=== PATIENT | female | born 1985 | race Caucasian/White ===

== ENCOUNTER 2019-02-04 12:13 | Day surgery (SDC) | payer OTHER, SELFPAY ==
--- NOTE | 2019-02-04 | PATH_ITS ---
[facility] Accession Number: [id number] . 01 Material submitted: . BODY OF ANTRUM . 01 Clinical history: . FOR H. PYLORI . 02 Diagnosis: Stomach, Biopsies: Gastric antral and body mucosa with chronic gastritis. Negative for Helicobacter organisms by immunohistochemistry. Negative for intestinal metaplasia, dysplasia or malignancy. V/02/06/2019 . 02 Electronically signed: . Kwadwo Bull MD, PhD, Pathologist NPI- [id number] . 01 Gross description: . Received in one formalin-filled container, labeled with the patient's name and labeled body of antrum, are four 0.1-0.3 cm portions of tissue, entirely submitted in one cassette. ([id number]) /FRR . 02 Microscopic: . An immunohistochemical stain is performed to evaluate for Helicobacter organisms and is negative. The control stain showed appropriate reactivity. . * This test was developed and its performance characteristics determined by [facility]. It has not been cleared or approved by the U.S. Food and Drug Administration. The FDA has determined that such clearance or approval is not necessary. This test is used for clinical purposes. It should not be regarded as investigational or for research. . 02 Pathologist provided ICD-10: K29.70 . 02 CPT . 771255, [id number] Performed at: 01 [facility] [address] [facility], [place], [place] [id number] MD Iglesia Owens MD Phone: [phone] Performed at: 02 [facility] [place] [address] [place], [place] [id number] MD Pily Gunderson MD Phone: [phone]
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
[2019-02-04 13:23] VITALS: BP 111/78; PULSE 77; RESP 16; TEMP 36.6; O2SAT 98; BMI 23.6
[2019-02-04] MEDS: SODIUM CHLORIDE 0.9% 1,000 ML 70 ML IV (13:29)
--- NOTE | 2019-02-04 14:09 | PM.OP.ENDO ---
Operative Date/Time/Diagnoses Date of procedure: 02/04/19 Procedure Notes Procedure in detail: Surgeon: Glen Lombardi MD Procedure: Esophagogastroduodenoscopy with gastric biopsies Preoperative diagnosis: Epigastric pain/dyspepsia Postoperative diagnosis: Normal EGD status post gastric biopsies Medications: Monitored anesthesia care due to history of PTSD Preanesthesia Assessment An H and P was performed/updated and the Px?s ASA class is 1. The procedure was discussed in detail with the patient. The potential risks and complications including infection, bleeding, missed lesions, perforation, need for surgery in case of perforation, prolonged hospital stay, and were explained. A brief question and answer period was allotted and once all questions were answered, informed consent was obtained. The patient was brought back to the procedure room and placed on standard monitoring. The patient?s vital signs were monitored continuously throughout the entire procedure. Prior to starting, a timeout was performed to confirm the patient?s identity, allergies, medications, and procedure. Procedure in detail The patient was placed in left lateral decubitus position and a bite block was inserted. The tip of the upper endoscope was placed into the mouth and advanced without difficulty under direct visualization into the esophagus. Esophagus: The entire esophagus appeared normal Stomach: The entire stomach appeared normal. Biopsies were taken from the body and antrum to rule out H pylori, there was note of minimal bleeding. Duodenum: The duodenal mucosa appeared normal up to the 2nd portion The patient tolerated the procedure well and will be brought back to the recovery area to be discharged once criteria are met. Complications There were no complications and estimated blood loss was minimal. Recommendations: Resume previous diet Continue outPx medications Follow up pathology results Office follow up with Dr. Dennison in 1-2 months if with persistent symptoms An emergency contact number was given to the patient for any complications related to the procedure
--- NOTE | 2019-02-04 14:12 | P.OP.ENDO_ITS ---
Operative Date/Time/Diagnoses Date of procedure: 02/04/19 Procedure Notes Procedure in detail: Surgeon: Glen Lombardi MD Procedure: Esophagogastroduodenoscopy with gastric biopsies Preoperative diagnosis: Epigastric pain/dyspepsia Postoperative diagnosis: Normal EGD status post gastric biopsies Medications: Monitored anesthesia care due to history of PTSD Preanesthesia Assessment An H and P was performed/updated and the Px?s ASA class is 1. The procedure was discussed in detail with the patient. The potential risks and complications including infection, bleeding, missed lesions, perforation, need for surgery in case of perforation, prolonged hospital stay, and were explained. A brief question and answer period was allotted and once all questions were answered, informed consent was obtained. The patient was brought back to the procedure room and placed on standard monitoring. The patient?s vital signs were monitored continuously throughout the entire procedure. Prior to starting, a timeout was performed to confirm the patient?s identity, allergies, medications, and procedure. Procedure in detail The patient was placed in left lateral decubitus position and a bite block was inserted. The tip of the upper endoscope was placed into the mouth and ad vanced without difficulty under direct visualization into the esophagus. Esophagus: The entire esophagus appeared normal Stomach: The entire stomach appeared normal. Biopsies were taken from the body and antrum to rule out H pylori, there was note of minimal bleeding. Duodenum: The duodenal mucosa appeared normal up to the 2nd portion The patient tolerated the procedure well and will be brought back to the recovery area to be discharged once criteria are met. Complications There were no complications and estimated blood loss was minimal. Recommendations: Resume previous diet Continue outPx medications Follow up pathology results Office follow up with Dr. Dennison in 1-2 months if with persistent symptoms An emergency contact number was given to the patient for any complications re lated to the procedure
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
[2019-02-04 14:23] VITALS: BP 103/71; PULSE 75; RESP 13; TEMP 36.5; O2SAT 99
[2019-02-04 14:27] VITALS: BP 108/76; PULSE 79; RESP 15; O2SAT 99
[2019-02-04 14:32] VITALS: BP 121/83; PULSE 84; RESP 15; O2SAT 94
[2019-02-04 14:54] VITALS: BP 110/70; PULSE 78; RESP 16; O2SAT 97
== END 2019-02-04 14:55 | disposition home or self-care (01) ==
PROVIDERS: Visit Provider Internal Medicine Gastroenterology
PROC: 0DJ08ZZ Inspection of Upper Intestinal Tract, Via Natural or Artificial Opening Endoscopic (ICD-10-PCS; CPT 43235; principal; 2019-02-04 14:00)
DX: K29.70 Gastritis, unspecified, without bleeding (principal); F43.10 Post-traumatic stress disorder, unspecified
CPT/HCPCS: 43239; 88305; 88342; J2704

== ENCOUNTER 2019-03-31 04:32 | Emergency (ER) | payer OTHER, SELFPAY ==
[2019-03-31 04:37] VITALS: BP 120/84; PULSE 84; RESP 16; TEMP 36.7; O2SAT 100; BMI 22.8
[2019-03-31 05:00] LABS: RBC Urine None Seen (0-5/HPF)
[2019-03-31 05:49] LABS: Bacteria Urine Few (2-10); Culture Indicated Urine Specimen Cultured; Squamous Epithelial Cell Urine 1-5 /HPF (0-5/HPF); WBC Urine 30-100/HPF (0-5/HPF)
--- NOTE | 2019-03-31 06:12 | ED_ITS ---
HPI - Female Genitourinary General Chief complaint: Urogenital-Female Stated complaint: painful urination odor thinks UTI Time Seen by Provider: 03/31/19 04:48 Source: patient Mode of arrival: ambulatory Limitations: no limitations History of Present Illness HPI Narrative: The patient developed dysuria with suprapubic discomfort 2 days ago. The pain has increased through the night to the point she felt she needed to come in for help. She is certain she has UTI. There is no associated nausea, vomiting or diarrhea. She has no fever chills. She denies back pain. She has a prior history of UTI, but has never had chronic UTIs. Her LMP was 3 weeks ago was normal. She doubts . Related Data Home Medications Medication Instructions Recorded Confirmed melatonin 10 mg PO BEDTIME PRN 02/04/19 02/04/19 Previous Rx's Medication Instructions Recorded phenazopyridine [Pyridium] 200 mg PO Q8H PRN #9 tab 03/31/19 sulfamethoxazole-trimethoprim 1 tab PO Q12H #14 tab 03/31/19 [Bactrim DS] Allergies Allergy/AdvReac Type Severity Reaction Status Date / Time acetaminophen [From Vicodin] AdvReac Severe stops Verified 02/04/19 13:21 urination hydrocodone [From Vicodin] AdvReac Severe stops Verified 02/04/19 13:21 urination Review of Systems Constitutional Reports as per HPI, Denies fatigue, Denies fever(s) and Denies headache(s) ENT Ears, Nose, Mouth, and Throat: Denies headache(s) Cardiovascular Denies chest pain, Denies lightheadedness, Denies palpitations, Denies dyspnea and Denies orthopnea Respiratory Denies cough, Denies dyspnea and Denies wheezing Gastrointestinal Gastrointestinal: Reports as per HPI, Reports abdominal pain, Denies change in bowel habits, Denies diarrhea, Denies nausea and Denies vomiting Genitourinary Reports dysuria, Denies urinary incontinence, Denies urinary hesitancy and Denies urinary urgency Musculoskeletal Denies back pain Integumentary/Breasts Denies erythema and Denies rash Neurologic Denies headache(s) Endocrine Denies fatigue and Denies palpitations Allergic/Immunologic Denies wheezing [facility] Medical History (Updated 03/31/19 @ 06:12 by Carlin Hutchison MD) PTSD (post-traumatic stress disorder) (Acute) Recurrent abdominal pain (Acute) Surgical History No pertinent past surgical history (Acute) Social History household members: family Smoking Status: Current every day smoker Social History household members: family Smoking Status: Current every day smoker Exam Initial Vital Signs Initial Vital Signs: Vital Signs Temperature 98.0 F 03/31/19 04:37 Pulse Rate 84 03/31/19 04:37 Respiratory Rate 16 03/31/19 04:37 Blood Pressure 120/84 03/31/19 04:37 Pulse Oximetry 100 03/31/19 04:37 Resp Effort & Inspection: normal respiratory effort and able to speak in complete sentences Auscultation: clear to auscultation bilaterally, no rales, no rhonchi and no wheezes Cardio Rate: regular rate Rhythm: regular rhythm Heart Sounds: no click, no gallops, no murmurs and no rubs Pulses: normal peripheral pulses GI Inspection: non-distended Palpation: soft, no hepatosplenomegaly, No guarding, No pulsatile mass and tender (Mild suprapubic discomfort without guarding or rebound.) Auscultation: normal bowel sounds Back/Spine/Pelvis Back: No CVA tenderness Course Course Narrative: The patient was found to have a UTI. She was started on Septra DS this morning. She was also given Pyridium to assist with spasms. Orders Ordered: Discontinued Medications Phenazopyridine HCl (Pyridium) 200 mg PO NOW ONE Stop: 03/31/19 06:01 Last Admin: 03/31/19 06:31 Dose: 200 mg Trimethoprim/Sulfamethoxazole (Bactrim Ds) 1 tab PO NOW ONE Stop: 03/31/19 06:01 Last Admin: 03/31/19 06:31 Dose: 1 tab Vital Signs - 8 hr 03/31/19 04:37 03/31/19 06:27 Temperature 98.0 F 98.5 F Pulse Rate 84 76 Respiratory Rate 16 16 Blood Pressure 120/84 Blood Pressure [Left Arm] 108/75 Pulse Oximetry 100 100 MDM - Female Genitourinary Lab Data Lab Results 03/31/19 Range/Units 04:40 Urine RBC None seen (0-5/HPF) Urine WBC 30-100/hpf H (0-5/HPF) Ur Squamous Epith Cells 1-5 /hpf (0-5/HPF) Urine Bacteria Few (2-10) H (None) Ur Culture Indicated? Specimen cultured Urine Dip Bedside Urine Glucose Negative Bedside Urine Bilirubin - Negative Bedside Urine Ketone - Negative Urine Specific [place] 1.010 Bedside Urine Occult Blood +++ Bedside Urine pH 6.0 Bedside Urine Protein - Negative Bedside Urine Urobilinogen - Negative Bedside Urine Nitrite - Negative Bedside Urine Leukocytes +++ 500 Esterase Discharge Plan Departure Patient Disposition: Home Clinical Impression: Urinary tract infection Qualifiers: Urinary tract infection type: acute cystitis Hematuria presence: without hematuria Qualified Code(s): N30.00 - Acute cystitis without hematuria Discharge Date/Time: 03/31/19 06:36 Interventions: ED Discharge Assessment Last Done: 03/31/19 06:36 Instructions: DI for Urinary Tract Infection (UTI) Activity Restrictions/Additional Instructions: Drink plenty of water, stay well hydrated. Septra DS 2 times daily for 1 week. Pre him every 8 hours for the next 3 days as needed for bladder spasm. Stop this medication when symptoms improve. Return the ER for increasing pain, fever, nausea or vomiting. Prescriptions: New phenazopyridine [Pyridium] 200 mg tablet 200 mg PO Q8H PRN (Reason: pain) Qty: 9 RF: 0 sulfamethoxazole-trimethoprim [Bactrim DS] 800-160 mg tablet 1 tab PO Q12H Qty: 14 RF: 0 No Action melatonin 10 mg Tablet 10 mg PO BEDTIME PRN (Reason: Insomnia) RF: 0
[2019-03-31 06:27] VITALS: BP 108/75; PULSE 76; RESP 16; TEMP 36.9; O2SAT 100
[2019-03-31] MEDS: TRIMETH/SULFA 160/800 (DS) TABLET 1 TAB PO (06:31)
[2019-03-31] MEDS: PHENAZOPYRIDINE 100 MG TABLET 200 MG PO (06:31)
== END 2019-03-31 06:36 | disposition home or self-care (01) ==
PROVIDERS: Emergency Provider Emergency Medicine
DX: N30.00 Acute cystitis without hematuria (principal)
CPT/HCPCS: 81003; 81015; 87077; 87086; 87186; 99282; 99283

== ENCOUNTER → 2019-04-10 12:02 | Outpatient (CLI) | payer OTHER, SELFPAY ==
--- NOTE | 2019-04-10 | DI.US.S_ITS ---
PROCEDURE: US ABDOMEN COMPLETE INDICATIONS: RIGHT UPPER QUADRANT PAIN TECHNIQUE: Real-time scanning was performed of the abdominal and retroperitoneal organs, with image documentation. COMPARISON: None. FINDINGS: Liver: Liver is normal in size and homogeneous in echotexture. A thin-walled simple cyst is present in the dorsal lateral left lobe of the liver measuring 2.1 x 2.0 x 2.7 cm. Gallbladder: Gallbladder is normal without stones, sludge, wall thickening, or pericholecystic fluid. Biliary ducts: Intrahepatic bile ducts are non-dilated. Extrahepatic bile duct caliber measures 5.5 mm. Normal is 6-7 mm or less in diameter, or 10 mm or less post-cholecystectomy. Pancreas: Visualized portions of the pancreas are sonographically normal. Spleen: Spleen is normal in size and homogeneous in echotexture. Kidneys: Kidneys are normal in size and echotexture. Right kidney measures 10.4 cm long; left kidney measures 10.6 cm long. No hydronephrosis or nephrolithiasis. No solid masses. Aorta: Visualized aorta is normal in caliber at less than 3 cm. Iliacs: Proximal common iliac arteries are normal in caliber at less than 2.5 cm. IVC: Intrahepatic inferior vena cava is patent. Miscellaneous: No free abdominal fluid. IMPRESSION: 1. Etiology of right upper quadrant pain is not evident. 2. 2.7 cm simple liver cyst. Dictated by: Alyssa Santoyo M.D. on 04/10/2019 at 14:05 Approved by: Alyssa Santoyo M.D. on 04/10/2019 at 14:07
== END ==
PROVIDERS: Visit Provider Internal Medicine Gastroenterology
DX: R10.11 Right upper quadrant pain (principal); K76.89 Other specified diseases of liver
CPT/HCPCS: 76700

== ENCOUNTER 2019-11-23 17:07 | Emergency (ER) | payer OTHER, SELFPAY ==
[2019-11-23 17:10] VITALS: BP 123/81; PULSE 93; RESP 22; TEMP 36.6; O2SAT 98; BMI 24.3
[2019-11-23] MEDS: ONDANSETRON 4 MG ODT SL (17:26)
[2019-11-23] MEDS: MAG HYDROX/ALUMINUM/SIMETH SUS 20 ML, LIDOCAINE VISCOUS 2% 15 ML PO (17:28)
--- NOTE | 2019-11-23 18:38 | ED_ITS ---
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 It comes and goes with an apparent mind of its own and she denies any provocation, palliation or radiation. She denies vomiting but has been a bit nauseated. She has had no fever chills and denies any change in her bowel habits. She denies dysuria, frequency or urgency. She has no vaginal bleeding or discharge. She has had extensive workup including ultrasounds, endoscopy and swallow studies and has a scheduled gastric emptying study MD complaint: abdominal pain Onset (ago): month(s) Pain Consistency: intermittent Location: epigastric Severity: moderate Quality: cramping Radiation: none Migration to: no migration Relieving factors: nothing Exacerbating factors: nothing Associated symptoms: nausea Related Data Home Medications Medication Instructions Recorded Confirmed melatonin 10 mg PO BEDTIME PRN 02/04/19 02/04/19 Previous Rx's Medication Instructions Recorded hydrocodone-acetaminophen 1 tab PO Q4-6H PRN #10 tab 11/23/19 hyoscyamine sulfate 0.25 mg PO TID-QID PRN #14 tab 11/23/19 ondansetron 4 mg PO TID-QID PRN #10 tab 11/23/19 Allergies Allergy/AdvReac Type Severity Reaction Status Date / Time No Known Drug Allergies Allergy Verified 11/23/19 17:10 Review of Systems Constitutional Constitutional: Denies chills, Denies fatigue, Denies fever(s), Denies frequent falls, Denies lethargy and Denies weakness Eyes Eyes: Denies change in vision, Denies eye discharge, Denies irritation and Denies loss of vision ENT Ears, Nose, Mouth, and Throat: Denies change in voice, Denies dizziness, Denies neck pain, Denies sore throat and Denies throat swelling Cardiovascular Cardiovascular: Denies chest pain, Denies irregular heart rhythm, Denies lightheadedness, Denies palpitations, Denies dyspnea, Denies dyspnea on exertion and Denies orthopnea Respiratory Respiratory: Denies cough, Denies dyspnea, Denies dyspnea on exertion and Denies wheezing Gastrointestinal Gastrointestinal: Reports abdominal pain, Denies change in bowel habits, Denies diarrhea, Denies nausea and Denies vomiting Genitourinary Genitourinary: Denies hematuria, Denies flank pain, Denies urinary incontinence and Denies urinary urgency Musculoskeletal Musculoskeletal: Denies back pain, Denies muscle weakness, Denies neck pain, Denies numbness and Denies tingling Integumentary/Breasts Skin/Breast: Denies pruritus, Denies erythema, Denies rash and Denies wounds Neurologic Neurologic: Denies behavioral changes, Denies confusion, Denies dizziness, Denies frequent falls, Denies loss of vision, Denies numbness, Denies tingling and Denies weakness Psychiatric Psychiatric: Denies anxiety, Denies behavioral changes, Denies confusion, Denies depression, Denies homicidal ideation and Denies suicidal ideation Endocrine Endocrine: Denies fatigue, Denies flushing and Denies palpitations Hematologic/Lymphatic Hematologic/Lymphatic: Denies easy bruising Allergic/Immunologic Allergic/Immunologic: Denies urticaria, Denies throat swelling and Denies wheezing Patient History Medical History PTSD (post-traumatic stress disorder) (Acute) Recurrent abdominal pain (Acute) Surgical History No pertinent past surgical history (Acute) Social History household members: family Smoking Status: Never smoker Smoking Status: Never smoker alcohol intake frequency: 0-2 drinks per day Substance Use Type: marijuana Exam Narrative Exam Narrative: GENERAL: [34] year old patient appears stated age. Well- nourished, well-developed patient, in mild distress. Obviously uncomfortable and massaging her epigastrium HEAD: Atraumatic. Normocephalic. EYES: Pupils equal round and reactive. Extraocular motions intact. No scleral icterus. No injection or drainage. ENT: Nose without bleeding, purulent drainage. Throat without erythema, tonsillar hypertrophy or exudate. Airway patent. NECK: Trachea midline. Non tender CARDIOVASCULAR: Regular rate and rhythm without murmurs, gallops, or rubs. RESPIRATORY: Clear to auscultation. Breath sounds equal bilaterally. No wheezes, rales, or rhonchi. GASTROINTESTINAL: Abdomen soft, mild epigastric tenderness, nondistended. EXTREMITIES: No edema or joint tenderness. BACK: Nontender without deformity or crepitance. No flank tenderness. NEURO: AOx3. SKIN: No rash or erythema of visible areas Initial Vital Signs Initial Vital Signs: Vital Signs Temperature 97.8 F 11/23/19 17:10 Pulse Rate 93 H 11/23/19 17:10 Respiratory Rate 22 11/23/19 17:10 Blood Pressure 123/81 11/23/19 17:10 Pulse Oximetry 98 11/23/19 17:10 Course Orders Ordered: ED Orders 11/23/19 18:50 Complete Blood Count AUTO DIFF Stat Comprehensive Metabolic Panel Stat Lipase Stat 11/23/19 19:23 CT abdomen pelvis w con Stat 11/23/19 19:26 Urine Culture Stat Urine Microscopic Stat Discontinued Medications Hydrocodone Bitart/Acetaminophen (Vicodin 5/325 Prepack) 1 bottle MISC SEEINSTR ONE Stop: 11/23/19 20:54 Last Admin: 11/23/19 21:07 Dose: 1 bottle Documented by: CHARLEEN Al Hydrox/Mg Hydrox/Simethicone 20 ml/ Lidocaine HCl 15 ml 0 ml PO NOW ONE Stop: 11/23/19 17:20 Last Admin: 11/23/19 17:28 Dose: 35 ml Documented by: ALFREDO Hydromorphone HCl (Dilaudid) 0.5 mg IV NOW ONE Stop: 11/23/19 19:24 Last Admin: 11/23/19 19:52 Dose: 0.5 mg Documented by: REBEAK Sodium Chloride (Normal Saline 0.9%) 1,000 mls @ 1,000 mls/hr IV BOLUS ONE Stop: 11/23/19 20:22 Last Infusion: 11/23/19 21:06 Dose: 0 mls/hr Documented by: Admin: 11/23/19 19:54 Dose: 1,000 mls/hr Documented by: RBEEKA Ondansetron HCl (Zofran Odt) 4 mg SL NOW ONE Stop: 11/23/19 17:20 Last Admin: 11/23/19 17:26 Dose: 4 mg Documented by: ALFREDO Ondansetron HCl (Zofran Odt Prepack) 1 bottle MISC SEEINSTR ONE Stop: 11/23/19 20:54 Last Admin: 11/23/19 21:07 Dose: 1 bottle Documented by: CHARLEEN Pantoprazole Sodium (Protonix) 40 mg IV NOW ONE Stop: 11/23/19 19:24 Last Admin: 11/23/19 19:51 Dose: 40 mg Documented by: RODOLFOT Vital Signs Vital signs: Vital Signs - 8 hr 11/23/19 21:14 Temperature 98.0 F Pulse Rate 83 Respiratory Rate 18 Blood Pressure 132/86 Pulse Oximetry 99 MDM - Abdominal Pain Lab Data Result diagrams: 11/23/19 18:50 11/23/19 18:50 Labs: Lab Results 11/23/19 11/23/19 11/23/19 Range/Units 18:50 18:50 19:26 WBC 7.0 (4.5-11.0) X10^3/uL RBC 4.63 (4.0-5.2) X10^6/uL Hgb 14.2 (12.0-16.0) g/dL Hct 41.5 (36-46) % MCV 89.6 (80-100) fL MCH 30.7 (26-34) PG MCHC 34.3 (30-36) % RDW 13.4 (11.6-14.8) % Plt Count 244 (150-400) X10^3/uL Neut % (Auto) 58.6 (50-75) % Lymph % (Auto) 30.9 (25-40) % [place] % (Auto) 8.8 (3-14) % Eos % (Auto) 1.0 L (2-4) % Baso % (Auto) 0.7 (0-2) % Neut # (Auto) 4100 (4413-2928) /uL Lymph # (Auto) 2200 (3711-8688) /uL [place] # (Auto) 600 (0-900) /uL Eos # (Auto) 100 (0-450) /uL Baso # (Auto) 100 (0-100) /uL Sodium 138 (137-145) mmol/L Potassium 4.1 (3.4-5.1) mmol/L Chloride 101 (98-107) mmol/L Carbon Dioxide 27 (22-32) mmol/L BUN 17 (7-17) mg/dL Creatinine 0.80 (0.52-1.04) mg/dL Estimated GFR > 60.0 (>60) mL/min BUN/Creatinine Ratio 21.3 (6-22) Glucose 96 (70-100) mg/dL Calcium 10.1 (8.4-10.2) mg/dL Total Bilirubin 0.5 (0.2-1.3) mg/dL AST 37 H (14-36) IU/L ALT 18 (<35) IU/L Alkaline Phosphatase 76 (38-126) U/L Total Protein 8.4 H (6.3-8.2) g/dL Albumin 5.0 (3.5-5.0) g/dL Globulin 3.4 (1.7-4.1) g/dL Albumin/Globulin Ratio 1.5 (1.0-2.8) Lipase 129 (23-300) U/L Urine RBC None seen (0-5/HPF) Urine WBC 1-5/hpf (0-5/HPF) Ur Squamous Epith Cells 0-1 /hpf (0-5/HPF) Urine Bacteria Occasional (0-1) (None) Ur Culture Indicated? Specimen cultured Point of care testing: Point of Care Testing Test Results Negative Urine Dip Bedside Urine Glucose Negative Bedside Urine Bilirubin + 1 Bedside Urine Ketone +/- 5 Urine Specific [place] 1.015 Bedside Urine Occult Blood - Negative Bedside Urine pH 7.0 Bedside Urine Protein - Negative Bedside Urine Urobilinogen +/- 1mg Bedside Urine Nitrite - Negative Bedside Urine Leukocytes + [address] scan - abdomen/pelvis: Radiologist's Impression: [address] [address] [address] Scan Report Signed Patient: Patrice Jessica#: [id number] : 1985Acct:[id number] Age/Sex: 34 / FDate of Service: 11/23/19 Loc: ED Accession Number: [id number] Procedure: CT abdomen pelvis w con Ordering Provider: Jonathan Singh D.O. PROCEDURE: CT ABDOMEN PELVIS W CON INDICATIONS: severe abdominal pain TECHNIQUE: After the administration of intravenous contrast, 5 mm thick sections acquired from the diaphragm to the symphysis. 5 mm coronal and sagittal reformats were acquired. For radiation dose reduction, the following was used: automated exposure control, adjustment of mA and/or kV according to patient size. COMPARISON: [facility] , [place] ABDOMEN COMPLETE, 04/10/2019, 12:13. FINDINGS: Image quality: Excellent. ABDOMEN: Lung bases: Lung bases are clear. Heart size is normal. Solid organs: Liver is normal in size and enhancement. Gallbladder is unremarkable. Biliary system is non dilated. Pancreas enhances normally. Spleen is normal in size and enhancement. No adrenal nodules. Kidneys demonstrate normal size and enhancement, without hydronephrosis. Peritoneum and bowel: Bowel loops demonstrate normal wall thickness and caliber. No free fluid or air. A normal appendix is noted. Nodes and vessels: No retroperitoneal or mesenteric adenopathy by size criteria. Aorta and inferior vena cava are normal in size. Miscellaneous: No ventral hernias. PELVIS: Genitourinary: Bladder wall thickness is normal. Miscellaneous: No inguinal hernias or adenopathy. Bones: No suspicious bony lesions. No vertebral body compression fractures. IMPRESSION: Unremarkable CT of the abdomen and pelvis. No evidence of acute abdominal process. Normal appendix. Dictated by: Mane Webber M.D. on 11/23/2019 at 20:22 Approved by: Mane Webber M.D. on 11/23/2019 at 20:26 MDM Narrative Medical decision making narrative: Multiple etiologies for patient's symptoms considered including: [Gallbladder disease versus pancreatitis versus esophageal disease versus H pylori versus bowel obstruction versus other] Patient's symptoms improved or duration of stay with above-stated therapies. Findings and discharge diagnosis discussed with patient/family followed by verbalization of understanding Return precautions discussed with patient/family whom verbalize understanding. Patient denies any urinary complaints such as dysuria, frequency or urgency. No antibiotics written, will await return of cultures Discharge Plan Departure Patient Disposition: Home Clinical Impression: Abdominal pain Qualifiers: Abdominal location: generalized Qualified Code(s): R10.84 - Generalized abdominal pain Discharge Date/Time: 11/23/19 21:21 Activity Restrictions/Additional Instructions: *You have been diagnosed with [acute epigastric pain] *What to do: *Take medications as directed: Pres[facility] to [facility] [place] *Follow up with your primary care provider in 2-3 days, call for an appointment. Let them know you were seen in the Emergency Department and that we ask that you be seen in follow up *Return to ER if you should have any new, worsening or concerning symptoms Prescriptions: New hydrocodone-acetaminophen 5-325 mg tablet 1 tab PO Q4-6H PRN (Reason: pain) Qty: 10 RF: 0 ondansetron 4 mg tablet,disintegrating 4 mg PO TID-QID PRN (Reason: nausea and vomiting) Qty: 10 RF: 0 hyoscyamine sulfate 0.125 mg tablet 0.25 mg PO TID-QID PRN (Reason: dyspepsia) Qty: 14 RF: 0 No Action melatonin 10 mg Tablet 10 mg PO BEDTIME PRN (Reason: Insomnia) RF: 0
--- NOTE | 2019-11-23 19:23 | DI.CT.S_ITS ---
PROCEDURE: CT ABDOMEN PELVIS W CON INDICATIONS: severe abdominal pain TECHNIQUE: After the administration of intravenous contrast, 5 mm thick sections acquired from the diaphragm to the symphysis. 5 mm coronal and sagittal reformats were acquired. For radiation dose reduction, the following was used: automated exposure control, adjustment of mA and/or kV according to patient size. COMPARISON: [facility], , [place] ABDOMEN COMPLETE, 04/10/2019, 12:13. FINDINGS: Image quality: Excellent. ABDOMEN: Lung bases: Lung bases are clear. Heart size is normal. Solid organs: Liver is normal in size and enhancement. Gallbladder is unremarkable. Biliary system is non dilated. Pancreas enhances normally. Spleen is normal in size and enhancement. No adrenal nodules. Kidneys demonstrate normal size and enhancement, without hydronephrosis. Peritoneum and bowel: Bowel loops demonstrate normal wall thickness and caliber. No free fluid or air. A normal appendix is noted. Nodes and vessels: No retroperitoneal or mesenteric adenopathy by size criteria. Aorta and inferior vena cava are normal in size. Miscellaneous: No ventral hernias. PELVIS: Genitourinary: Bladder wall thickness is normal. Miscellaneous: No inguinal hernias or adenopathy. Bones: No suspicious bony lesions. No vertebral body compression fractures. IMPRESSION: Unremarkable CT of the abdomen and pelvis. No evidence of acute abdominal process. Normal appendix. Dictated by: Mane Webber M.D. on 11/23/2019 at 20:22 Approved by: Mane Webber M.D. on 11/23/2019 at 20:26
[2019-11-23 19:37] LABS: Add Manual Diff / Slide Review NO; Basophils Absolute Auto 100 /uL (0-100); Basophils Percent Auto 0.7 % (0-2); Eosinophils Absolute Auto 100 /uL (0-450); Hematocrit 41.5 % (36-46); Hemoglobin 14.2 g/dL (12.0-16.0); Lymphocytes Absolute Auto 2200 /uL (1100-4500); Lymphocytes Percent Auto 30.9 % (25-40); Mean Corpuscular HGB Conc 34.3 % (30-36); Mean Corpuscular Hemoglobin 30.7 PG (26-34); Mean Corpuscular Volume 89.6 fL (80-100); Monocytes Absolute Auto 600 /uL (0-900); Monocytes Percent Auto 8.8 % (3-14); Neutrophils Absolute Auto 4100 /uL (1500-7000); Neutrophils Percent Auto 58.6 % (50-75); Platelet Count 244 X10^3/uL (150-400); Red Blood Cell Count 4.63 X10^6/uL (4.0-5.2); Red Cell Distribution Width 13.4 % (11.6-14.8)
[2019-11-23 19:43] LABS: Alanine Aminotransferase 18 IU/L (<35); Albumin Globulin Ratio 1.5 (1.0-2.8); Alkaline Phosphatase 76 U/L (38-126); Aspartate Aminotransferase 37 IU/L (14-36); BUN Creatinine Ratio 21.3 (6-22); Bilirubin Total 0.5 mg/dL (0.2-1.3); Blood Urea Nitrogen 17 mg/dL (7-17); Calcium 10.1 mg/dL (8.4-10.2); Carbon Dioxide 27 mmol/L (22-32); Chloride 101 mmol/L (98-107); Estimated Glomerular Filt Rate > 60.0 mL/min (>60); Globulin 3.4 g/dL (1.7-4.1); Glucose 96 mg/dL (70-100); HEMOLYSIS 18 (0-50); Lipase 129 U/L (23-300); Potassium 4.1 mmol/L (3.4-5.1); Sodium 138 mmol/L (137-145); Total Protein 8.4 g/dL (6.3-8.2)
[2019-11-23] MEDS: PANTOPRAZOLE 40 MG VIAL IV (19:51)
[2019-11-23] MEDS: HYDROMORPHONE 0.5 MG INJ IV (19:52)
[2019-11-23] MEDS: SODIUM CHLORIDE 0.9% 1,000 ML 1000 ML IV (19:54)
[2019-11-23 20:15] LABS: RBC Urine None Seen (0-5/HPF)
[2019-11-23 20:26] LABS: Bacteria Urine Occasional (0-1); Culture Indicated Urine Specimen Cultured; Squamous Epithelial Cell Urine 0-1 /HPF (0-5/HPF); WBC Urine 1-5/HPF (0-5/HPF)
[2019-11-23] MEDS: ONDANSETRON 4 MG ODT PREPACK 1 BOTTLE MISC (21:07)
[2019-11-23] MEDS: HYDROCODONE/ACET 5/325 PREPACK 1 BOTTLE MISC (21:07)
[2019-11-23 21:14] VITALS: BP 132/86; PULSE 83; RESP 18; TEMP 36.7; O2SAT 99
== END 2019-11-23 21:21 | disposition home or self-care (01) ==
PROVIDERS: Emergency Provider Emergency Medicine
DX: R10.13 Epigastric pain (principal); R11.0 Nausea
CPT/HCPCS: 36415; 74177; 80053; 81003; 81015; 81025; 83690; 85025; 87086; 96361; 96374; 96375; 99284; C9113; J1170; Q9967

== ENCOUNTER 2019-11-27 08:37 | Emergency (ER) | payer OTHER, SELFPAY ==
--- NOTE | 2019-11-27 08:42 | ED_ITS ---
HPI - Abdominal Pain General Chief Complaint: Abdominal Pain Stated Complaint: STOMACH PAIN X7 DAYS Time Seen by Provider: 11/27/19 08:42 Source: patient and family Mode of arrival: Ambulatory Limitations: no limitations History of Present Illness HPI narrative: 34-year-old female never smoker with chronic abdominal pain returns to the emergency department with similar complaints to a few days ago. She has episodic generalized abdominal pain, though perhaps a bit more persistent in the epigastrium that comes and goes with no apparent provocation or palliation. There's minimal radiation. She has had 1 episode of vomiting and no change in bowel habits. She denies dysuria, frequency or urgency. She was seen and evaluated a few days ago and had similar complaints to that which has become chronic for her. Ultrasound, CT and labs were unremarkable. She was given a few prescriptions for pain control and encouraged to follow up. 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 She has essentially no new symptoms and is in search of pain relief. We did discuss emergency department treatment of chronic symptoms, especially pain and she understands our policy. MD complaint: abdominal pain Onset (ago): day(s) Pain Consistency: intermittent Location: diffuse and epigastric Severity: moderate Quality: cramping Radiation: none Relieving factors: nothing Exacerbating factors: nothing Associated symptoms: nausea and vomiting Related Data Home Medications Medication Instructions Recorded Confirmed melatonin 10 mg PO BEDTIME PRN 02/04/19 02/04/19 Previous Rx's Medication Instructions Recorded hydrocodone-acetaminophen 1 tab PO Q4-6H PRN #10 tab 11/23/19 hyoscyamine sulfate 0.25 mg PO TID-QID PRN #14 tab 11/23/19 ondansetron 4 mg PO TID-QID PRN #10 tab 11/23/19 dicyclomine 10 mg PO BID #20 cap 11/27/19 hydrocodone-acetaminophen 1 tab PO Q4-6H PRN #10 tab 11/27/19 Allergies Allergy/AdvReac Type Severity Reaction Status Date / Time No Known Drug Allergies Allergy Verified 11/23/19 17:10 Review of Systems Constitutional Constitutional: Denies chills, Denies fatigue, Denies fever(s), Denies frequent falls, Denies lethargy and Denies weakness Eyes Eyes: Denies change in vision, Denies eye discharge, Denies irritation and Denies loss of vision ENT Ears, Nose, Mouth, and Throat: Denies change in voice, Denies dizziness, Denies neck pain, Denies sore throat and Denies throat swelling Cardiovascular Cardiovascular: Denies chest pain, Denies irregular heart rhythm, Denies lightheadedness, Denies palpitations, Denies dyspnea, Denies dyspnea on exertion and Denies orthopnea Respiratory Respiratory: Denies cough, Denies dyspnea, Denies dyspnea on exertion and Denies wheezing Gastrointestinal Gastrointestinal: Reports abdominal pain, Denies change in bowel habits, Denies diarrhea, Reports nausea and Reports vomiting Genitourinary Genitourinary: Denies hematuria, Denies flank pain, Denies urinary incontinence and Denies urinary urgency Musculoskeletal Musculoskeletal: Denies back pain, Denies muscle weakness, Denies neck pain, Denies numbness and Denies tingling Integumentary/Breasts Skin/Breast: Denies pruritus, Denies erythema, Denies rash and Denies wounds Neurologic Neurologic: Denies behavioral changes, Denies confusion, Denies dizziness, Denies frequent falls, Denies loss of vision, Denies numbness, Denies tingling and Denies weakness Psychiatric Psychiatric: Denies anxiety, Denies behavioral changes, Denies confusion, Denies depression, Denies homicidal ideation and Denies suicidal ideation Endocrine Endocrine: Denies fatigue, Denies flushing and Denies palpitations Hematologic/Lymphatic Hematologic/Lymphatic: Denies easy bruising Allergic/Immunologic Allergic/Immunologic: Denies urticaria, Denies throat swelling and Denies wheezing Patient History Medical History PTSD (post-traumatic stress disorder) (Acute) Recurrent abdominal pain (Acute) Surgical History No pertinent past surgical history (Acute) Social History household members: family Smoking Status: Never smoker Smoking Status: Never smoker alcohol intake frequency: 0-2 drinks per day Substance Use Type: marijuana Exam Narrative Exam Narrative: GENERAL: [34] year old patient appears stated age. Well- nourished, well-developed patient, in mild distress. Rubbing her epigastrium, tearful and frustrated HEAD: Atraumatic. Normocephalic. EYES: Pupils equal round and reactive. Extraocular motions intact. No scleral icterus. No injection or drainage. ENT: Nose without bleeding, purulent drainage. Throat without erythema, tonsillar hypertrophy or exudate. Airway patent. NECK: Trachea midline. Non tender CARDIOVASCULAR: Regular rate and rhythm without murmurs, gallops, or rubs. RESPIRATORY: Clear to auscultation. Breath sounds equal bilaterally. No wheezes, rales, or rhonchi. GASTROINTESTINAL: Abdomen soft, mild reproducible tenderness, nondistended. EXTREMITIES: No edema or joint tenderness. BACK: Nontender without deformity or crepitance. No flank tenderness. NEURO: AOx3. SKIN: No rash or erythema of visible areas Initial Vital Signs Initial Vital Signs: Vital Signs Temperature 97.9 F 11/27/19 08:45 Pulse Rate 74 11/27/19 08:45 Respiratory Rate 20 11/27/19 08:45 Blood Pressure 137/75 11/27/19 08:45 Pulse Oximetry 100 11/27/19 08:45 Course Orders Ordered: ED Orders 11/27/19 09:09 Complete Blood Count AUTO DIFF Stat Comprehensive Metabolic Panel Stat Discontinued Medications Hydromorphone HCl (Dilaudid) 1 mg IM NOW ONE Stop: 11/27/19 08:57 Last Admin: 11/27/19 09:02 Dose: 1 mg Documented by: RAUL Vital Signs Vital signs: Vital Signs - 8 hr 11/27/19 08:45 11/27/19 09:46 Temperature 97.9 F Pulse Rate 74 66 Respiratory Rate 20 Blood Pressure 137/75 121/77 Pulse Oximetry 100 99 MDM - Abdominal Pain Lab Data Result diagrams: 11/27/19 09:09 11/27/19 09:09 Labs: Lab Results 11/27/19 11/27/19 Range/Units 09:09 09:09 WBC 3.9 L (4.5-11.0) X10^3/uL RBC 4.27 (4.0-5.2) X10^6/uL Hgb 13.1 (12.0-16.0) g/dL Hct 38.4 (36-46) % MCV 90.1 (80-100) fL MCH 30.6 (26-34) PG MCHC 34.0 (30-36) % RDW 13.4 (11.6-14.8) % Plt Count 201 (150-400) X10^3/uL Neut % (Auto) 55.0 (50-75) % Lymph % (Auto) 32.0 (25-40) % [place] % (Auto) 10.5 (3-14) % Eos % (Auto) 2.0 (2-4) % Baso % (Auto) 0.5 (0-2) % Neut # (Auto) 2200 (8595-4130) /uL Lymph # (Auto) 1300 (3616-7733) /uL [place] # (Auto) 400 (0-900) /uL Eos # (Auto) 100 (0-450) /uL Baso # (Auto) 0 (0-100) /uL Sodium 136 L (137-145) mmol/L Potassium 4.2 (3.4-5.1) mmol/L Chloride 103 (98-107) mmol/L Carbon Dioxide 27 (22-32) mmol/L BUN 13 (7-17) mg/dL Creatinine 0.90 (0.52-1.04) mg/dL Estimated GFR > 60.0 (>60) mL/min BUN/Creatinine Ratio 14.4 (6-22) Glucose 89 (70-100) mg/dL Calcium 9.5 (8.4-10.2) mg/dL Total Bilirubin 0.4 (0.2-1.3) mg/dL AST 23 (14-36) IU/L ALT 14 (<35) IU/L Alkaline Phosphatase 56 (38-126) U/L Total Protein 7.5 (6.3-8.2) g/dL Albumin 4.4 (3.5-5.0) g/dL Globulin 3.1 (1.7-4.1) g/dL Albumin/Globulin Ratio 1.4 (1.0-2.8) Discharge Plan Departure Patient Disposition: Home Clinical Impression: Abdominal pain Qualifiers: Abdominal location: generalized Qualified Code(s): R10.84 - Generalized abdominal pain Discharge Date/Time: 11/27/19 09:47 Instructions: DI for Abdominal Pain-Adult Activity Restrictions/Additional Instructions: Your prescription has been electronically sent to [facility] in [place]. STOP taking the Hyoscyamine which I prescribed to you a few days ago as it isn't working. I've written another medication which may help, but it cannot be taken with the Hyoscyamine. Please continue to contact your PCP about a referral to GI. I've included contact info for the GI doctors at [facility] in [place] in case you wish to pursue a different provider. You have been prescribed narcotic medications. While on these medications you cannot drive or operate heavy machinery. Additionally you cannot sign legal documents or perform any duties such as this. Many people get constipated on narcotic medications so it would be advisable to discuss stool softeners with the pharmacist when you picker your prescription. Please understand that we cannot provide further refills of narcotics or controlled substances through the ED and your pain management will need to be through your Primary Care Provider Prescriptions: New hydrocodone-acetaminophen 5-325 mg tablet 1 tab PO Q4-6H PRN (Reason: pain) Qty: 10 RF: 0 dicyclomine 10 mg capsule 10 mg PO BID Qty: 20 RF: 0 No Action hydrocodone-acetaminophen 5-325 mg tablet 1 tab PO Q4-6H PRN (Reason: pain) Qty: 10 RF: 0 ondansetron 4 mg tablet,disintegrating 4 mg PO TID-QID PRN (Reason: nausea and vomiting) Qty: 10 RF: 0 hyoscyamine sulfate 0.125 mg tablet 0.25 mg PO TID-QID PRN (Reason: dyspepsia) Qty: 14 RF: 0 melatonin 10 mg Tablet 10 mg PO BEDTIME PRN (Reason: Insomnia) RF: 0 Referrals: [facility] [Outside] Bob Matthews MD [Non-Staff] -
[2019-11-27 08:45] VITALS: BP 137/75; PULSE 74; RESP 20; TEMP 36.6; O2SAT 100; BMI 24.3
[2019-11-27] MEDS: HYDROMORPHONE 1 MG INJ IM (09:02)
[2019-11-27 09:18] LABS: Add Manual Diff / Slide Review NO; Basophils Absolute Auto 0 /uL (0-100); Basophils Percent Auto 0.5 % (0-2); Eosinophils Absolute Auto 100 /uL (0-450); Hematocrit 38.4 % (36-46); Hemoglobin 13.1 g/dL (12.0-16.0); Lymphocytes Absolute Auto 1300 /uL (1100-4500); Mean Corpuscular Hemoglobin 30.6 PG (26-34); Mean Corpuscular Volume 90.1 fL (80-100); Monocytes Absolute Auto 400 /uL (0-900); Monocytes Percent Auto 10.5 % (3-14); Neutrophils Absolute Auto 2200 /uL (1500-7000); Platelet Count 201 X10^3/uL (150-400); Red Blood Cell Count 4.27 X10^6/uL (4.0-5.2); Red Cell Distribution Width 13.4 % (11.6-14.8); White Blood Cell Count 3.9 X10^3/uL (4.5-11.0)
[2019-11-27 09:27] LABS: Alanine Aminotransferase 14 IU/L (<35); Albumin 4.4 g/dL (3.5-5.0); Albumin Globulin Ratio 1.4 (1.0-2.8); Alkaline Phosphatase 56 U/L (38-126); Aspartate Aminotransferase 23 IU/L (14-36); BUN Creatinine Ratio 14.4 (6-22); Bilirubin Total 0.4 mg/dL (0.2-1.3); Blood Urea Nitrogen 13 mg/dL (7-17); Calcium 9.5 mg/dL (8.4-10.2); Carbon Dioxide 27 mmol/L (22-32); Chloride 103 mmol/L (98-107); Estimated Glomerular Filt Rate > 60.0 mL/min (>60); Globulin 3.1 g/dL (1.7-4.1); Glucose 89 mg/dL (70-100); HEMOLYSIS < 15 (0-50); Potassium 4.2 mmol/L (3.4-5.1); Sodium 136 mmol/L (137-145); Total Protein 7.5 g/dL (6.3-8.2)
[2019-11-27 09:46] VITALS: BP 121/77; PULSE 66; O2SAT 99
== END 2019-11-27 09:47 | disposition home or self-care (01) ==
PROVIDERS: Emergency Provider Emergency Medicine
DX: R10.84 Generalized abdominal pain (principal)
CPT/HCPCS: 80053; 85025; 96372; 99283; J1170

== ENCOUNTER → 2020-01-12 09:37 | Outpatient (CLI) | payer OTHER, SELFPAY ==
--- NOTE | 2020-01-12 | DI.NM.S_ITS ---
PROCEDURE: NM GASTRIC EMPTYING STUDY RADIOPHARMACEUTICAL: 1.0 mCi Tc-99m sulfur colloid in an egg sandwich. INDICATIONS: Nausea with vomiting, unspecified TECHNIQUE: A Tc-99m labeled sulfur colloid labeled egg sandwich or oatmeal was served to the patient. Anterior and posterior planar images of the abdomen were obtained at 0 minutes and 30 minutes, then at hourly intervals up to 4 hours. The patient was upright and ambulating during the interval. COMPARISON: None. FINDINGS: The stomach has normal size, morphology, and position. There is normal emptying of solid gastric contents from the stomach by visual inspection. No gastroesophageal reflux is visualized. The percentage of tracer retained at specific time points are as follows: Time point Percent gastric retention Normal range 30 minutes 78% 70% or more 1 hour 49% 30% to 90% 2 hours 24% 60% or less 3 hours 4% 30% or less IMPRESSION: Normal gastric emptying study, source of persistent nausea and vomiting is not identified. Dictated by: Mervin Mc M.D. on 01/12/2020 at 14:52 Approved by: Mervin Mc M.D. on 01/12/2020 at 15:05
== END ==
PROVIDERS: PCP General Practice; Referring Provider Student in an Organized Health Care Education/Training Program; Visit Provider Student in an Organized Health Care Education/Training Program
DX: R11.2 Nausea with vomiting, unspecified (principal); R10.13 Epigastric pain
CPT/HCPCS: 78264; A9541

== ENCOUNTER 2020-07-10 12:15 | Emergency (ER) | payer OTHER, SELFPAY ==
[2020-07-10 12:15] VITALS: BP 139/94; PULSE 95; RESP 14; TEMP 36.8; O2SAT 100
--- NOTE | 2020-07-10 12:33 | ED_ITS ---
HPI - Skin/Abscess/Foreign Bdy <HARLEEN PolancoP - Last Filed: 07/10/20 12:43> General Chief complaint: Skin/Abscess/Foreign Body Stated complaint: Infected Spider Bite On Knee Time Seen by Provider: 07/10/20 12:27 Source: patient Mode of arrival: Ambulatory Limitations: no limitations History of Present Illness HPI narrative: This is a 34 year female, nonsmoker, who presents to ED with right knee pain, redness, swelling which started 3-4 days ago when she woke up in the morning with small spots. Patient thought she had bitten by a spider but if this is not witnessed. Patient attempted to drain after soaking in hot water and noticed worsening pain, redness, swelling. Patient is able to flex or extend affected leg. Reports pain 5/10 but with movement and touch it increases to 6 to 8/10. She denies fever, chills, nausea or vomiting. She has not taken any medications for pain at home. Patient denies previous similar infection. Unknown last tetanus immunization. Related Data Home Medications Medication Instructions Recorded Confirmed melatonin 10 mg PO BEDTIME PRN 02/04/19 07/10/20 Previous Rx's Medication Instructions Recorded sulfamethoxazole-trimethoprim 1 tab PO DAILY 7 Days tab 07/10/20 [Bactrim DS] Allergies Allergy/AdvReac Type Severity Reaction Status Date / Time No Known Drug Allergies Allergy Verified 07/10/20 12:30 Review of Systems <HARLEEN PolancoP - Last Filed: 07/10/20 12:43> Review of Systems Narrative: General: Denies fever, chills, fatigue, malaise, sweats. HEENT: Denies sinus pain, ear pain, sore throat, difficulty swallowing, dizziness. Respiratory: Denies dyspnea, cough, wheezing, hemoptysis, sputum. Cardiovascular: Denies chest pain, palpitations, orthopnea, edema. Gastrointestinal: Denies nausea, vomiting, abdominal pain, diarrhea, constipation, melena. : Denies dysuria, frequency, incontinence, hematuria, urinary retention. Musculoskeletal: See HPI Skin: See HPI Neurologic: Denies weakness, headache, numbness, change in speech, confusion, seizures, incoordination. Psychiatric: No concerning psychosocial issues. 12-point review of systems is negative except for those stated above. Patient History <SOULEYMANE Polanco - Last Filed: 07/10/20 12:43> Medical History PTSD (post-traumatic stress disorder) (Acute) Recurrent abdominal pain (Acute) Surgical History No pertinent past surgical history (Acute) Social History household members: family Smoking Status: Never smoker Smoking Status: Never smoker alcohol intake frequency: 0-2 drinks per day Substance Use Type: does not use Exam <SOULEYMANE Polanco - Last Filed: 07/10/20 12:43> Narrative Exam Narrative: General appearance: well developed, well nourished, in no acute distress. Head: normocephalic, atraumatic, no scalp lesions, non-tender. ENT: Hearing grossly intact. Airway patent. Neck/Thyroid: neck supple, full range of motion, no visible masses or meningeal signs. No JVD, non-tender without lymphadenopathy. Skin: Erythematous round lesion approximately 5 cm in diameter on right knee with very ivette black spot in the middle. Warm and tender to palpate. No fluctuation appreciated. Heart: no clubbing, no cyanosis, no edema. S1 and S2 normal. RRR w/o murmurs, clicks, or bruits. Lungs: Breathing even and unlabored. No stridor. No accessory muscles used. Able to speak in full sentences. Chest: normal shape and expansion. Abdomen: non-obese, non-distended. Neurologic: alert and oriented. Cognitive exam, [employer] and PNS grossly intact on informal exam. Psych: good eye contact, normal affect. Initial Vital Signs Initial Vital Signs: Vital Signs Temperature 98.2 F 07/10/20 12:15 Pulse Rate 95 H 07/10/20 12:15 Respiratory Rate 14 07/10/20 12:15 Blood Pressure 139/94 H 07/10/20 12:15 Pulse Oximetry 100 07/10/20 12:15 Extrem Right lower extremity: knee Details: abnormal to inspection, tenderness, swelling, warmth and other (Erythema, able to flex and extend knee without difficulty.) <Denice Zaldivar DO - Last Filed: 07/10/20 17:48> Initial Vital Signs Initial Vital Signs: Vital Signs Temperature 98.2 F 07/10/20 12:15 Pulse Rate 95 H 07/10/20 12:15 Respiratory Rate 14 07/10/20 12:15 Blood Pressure 139/94 H 07/10/20 12:15 Pulse Oximetry 100 07/10/20 12:15 Scores <[facility] - Last Filed: 07/10/20 12:43> GCS [place] coma scale eye opening: Spontaneous [place] coma scale verbal response: Orientated [place] coma scale motor response: Obey commands Mikie coma scale total score: 15 Course <Simone SOULEYMANE Alamo - Last Filed: 07/10/20 12:43> Orders Ordered: Discontinued Medications Diphtheria/Tetanus/Acell Pertussis (Adacel) 0.5 ml IM .ONCE ONE Stop: 07/10/20 12:34 Last Admin: 07/10/20 12:38 Dose: 0.5 ml Documented by: KEN Vital Signs Vital signs: Vital Signs - 8 hr 07/10/20 12:15 Temperature 98.2 F Pulse Rate 95 H Respiratory Rate 14 Blood Pressure 139/94 H Pulse Oximetry 100 <Denice Zaldivar DO - Last Filed: 07/10/20 17:48> Orders Ordered: Discontinued Medications Diphtheria/Tetanus/Acell Pertussis (Adacel) 0.5 ml IM .ONCE ONE Stop: 07/10/20 12:34 Last Admin: 07/10/20 12:38 Dose: 0.5 ml Documented by: KEN Vital Signs Vital signs: Vital Signs - 8 hr 07/10/20 12:15 Temperature 98.2 F Pulse Rate 95 H Respiratory Rate 14 Blood Pressure 139/94 H Pulse Oximetry 100 MDM - Skin/Abscess/Foreign Bdy <[facility] Nixon - Last Filed: 07/10/20 12:43> Differential Diagnosis Differential diagnosis: Likely abscess of skin or subcutaneous tissue, cellulitis and insect bites Medical Records Attestation: I reviewed the patient's medical records. MDM Narrative Medical decision making narrative: This is a 34 year female who presents to ED with right knee pain, swelling, erythema which started to 3-4 days ago and has been worsening. Considered abscess but no fluctuation appreciated. Physical exam consistent with cellulitis. Patient is afebrile without constitutional symptoms. Labs and x-ray test held at this time. Will treat as cellulitis with 7 day course of Bactrim b.i.d. dose and frequent warm pack on affected site. Patient advised to follow-up with primary care physician in 2-3 days for recheck and edge of lesion lined with skin marker. Strict return precautions discussed with patient and patient verbalized understanding and in agreement with the treatment plan. Tetanus immunization has been updated today if this is an insect bites. Discharge Plan Departure Patient Disposition: Home Clinical Impression: Cellulitis Qualifiers: Site of cellulitis: extremity Site of cellulitis of extremity: lower extremity Laterality: right Qualified Code(s): L03.115 - Cellulitis of right lower limb Discharge Date/Time: 07/10/20 12:52 Activity Restrictions/Additional Instructions: You have been diagnosed with [right knee cellulitis.]. What to do: *Take your medications as directed. Please start taking antibiotic medication twice a day for next 7 days. Use warm pack frequently on affected knee. Also, you can use [id number] Tylenol and or Motrin as needed for discomfort. *Follow up with your primary care provider in 2-3 days, call for an appointment. Let them know you were seen in the ED and that we asked you to be seen in follow up. *Return to ED if you have any new, worsening, or concerning symptoms, such as [fever, chills, increasing redness/swelling/warmth, worsening pain especially after a few doses of antibiotic medication, chest pain, breathing difficulty, or any acute concerns]. Prescriptions: New sulfamethoxazole-trimethoprim [Bactrim DS] 800-160 mg tablet 1 tab PO DAILY 7 Days RF: 0 No Action melatonin 10 mg Tablet 10 mg PO BEDTIME PRN (Reason: Insomnia) RF: 0 Referrals: Alex Nunes MD [Primary Care Provider] - <Denice Zaldivar DO - Last Filed: 07/10/20 17:48> Cosign ED Attending [place] Attestation: I was immediately available in the department for consultation. Documentation has been reviewed. I agree with assessment and plan.
[2020-07-10] MEDS: TET,DIPH,PERTUSS(ACELL),VAC/PF 0.5 ML SYRINGE IM (12:38)
== END 2020-07-10 12:52 | disposition home or self-care (01) ==
PROVIDERS: Emergency Provider Nurse Practitioner Family; PCP General Practice
DX: L03.115 Cellulitis of right lower limb (principal); Z23 Encounter for immunization
CPT/HCPCS: 90471; 99283; 90715

== ENCOUNTER 2020-07-12 20:49 | Observation (INO) | payer OTHER, SELFPAY ==
[2020-07-12 21:02] VITALS: BP 151/81; PULSE 100; RESP 16; TEMP 36.8; O2SAT 97; BMI 25.7
--- NOTE | 2020-07-12 22:24 | PC.NURSE ---
Patient reports spider bite to right knee approximately one week ago. States washed wound out at home but came to ED Saturday for increasing redness and was diagnosed with cellulits and antibiotics. Went home with no issues, returning to ED today because approximately 1700 sharp pain rated as 9/10 started in right knee. Denies other symptoms. Denies improvement with heat/cold. Reports has been using antibiotics as directed.
--- NOTE | 2020-07-12 23:17 | DI.CT.S_ITS ---
PROCEDURE: CT LE RT W CON INDICATIONS: Abscess/knee pain after spider bite TECHNIQUE: After the administration of intravenous contrast, 3 mm axial sections acquired of the right lower extremity, with coronal and sagittal reformats. COMPARISON: [facility], CT, CT ABDOMEN PELVIS W CON, 11/23/2019, 19:43. FINDINGS: Image quality: Excellent. Bones: No fracture or dislocation. No bony erosion or periosteal reaction. Soft tissues: There is prepatellar soft tissue stranding and edema with skin thickening consistent with cellulitis. No organized fluid collections to suggest abscess. IMPRESSION: Cellulitis in the prepatellar soft tissue. No subcutaneous abscess. No significant discrepancy with the mini shifter radiology preliminary report. Dictated by: Pritesh Hall M.D. on 07/13/2020 at 7:45 Approved by: Pritesh Hall M.D. on 07/13/2020 at 8:16
--- NOTE | 2020-07-12 23:24 | ED.SKABFB ---
HPI - Skin/Abscess/Foreign Bdy General Chief complaint: Extremity Injury, Lower Stated complaint: leg pain Time Seen by Provider: 07/12/20 23:07 Source: patient History of Present Illness HPI narrative: Patient seen here 2 days ago for cellulitis of the right patella. Placed on Bactrim and has not improved. Is getting worse. More painful with movement. No fever chills. LMP now. complaint: abscess/boil Related Data Home Medications Medication Instructions Recorded Confirmed melatonin 5 mg PO BEDTIME PRN 02/04/19 07/13/20 Previous Rx's Medication Instructions Recorded sulfamethoxazole-trimethoprim 1 tab PO DAILY 7 Days tab 07/10/20 [Bactrim DS] Allergies Allergy/AdvReac Type Severity Reaction Status Date / Time No Known Drug Allergies Allergy Verified 07/10/20 12:30 Review of Systems Review of Systems Narrative: GENERAL: Denies chills, fatigue, malaise, fever, sweats. HEENT: Denies sinus pain, ear pain, sore throat, difficulty swallowing, dizziness. RESPIRATORY: Denies dyspnea, cough, wheezing, hemoptysis, sputum. CARDIOVASCULAR: Denies chest pain, palpitations, orthopnea, edema, GASTROINTESTINAL: Denies nausea, vomiting, abdominal pain, diarrhea, constipation, melena. : Denies dysuria, frequency, incontinence, hematuria, urinary retention. MUSCULOSKELETAL: denies weakness, complains of joint pain, or bony pain SKIN: Denies rash, cellulitis right knee NEUROLOGIC: Denies weakness, headache, numbness, change in speech, confusion, seizures, incoordination. PSYCHIATRIC: No concerning psychosocial issues. ROS Unobtainable: All systems reviewed & are unremarkable except as noted in HPI and below Patient History Medical History PTSD (post-traumatic stress disorder) (Acute) Recurrent abdominal pain (Acute) Surgical History Previous section (Acute) Social History household members: spouse and children Smoking Status: Never smoker alcohol intake: former Smoking Status: Never smoker alcohol intake frequency: 0-2 drinks per day Substance Use Type: does not use Exam Narrative Exam Narrative: GENERAL: patient appears stated age. Well-nourished, well-developed patient, in no distress, not toxic HEAD: Atraumatic. Normocephalic. EXTREMITIES: Examination right lower extremity. Limb is warm soft and pink strong pedal pulse light touch intact to foot and toes. There is a palm size area of erythema induration very tender to touch at the patella. No palpable fluctuance. No drainage. Able to bend at the knee but very painful. Strong pedal pulse. NEURO: Awake alert oriented x4 SKIN: No rash or erythema of visible areas PSYCH: Not anxious, is cooperative Initial Vital Signs Initial Vital Signs: Vital Signs Temperature 98.3 F 07/12/20 21:02 Pulse Rate 100 H 07/12/20 21:02 Respiratory Rate 16 07/12/20 21:02 Blood Pressure 151/81 H 07/12/20 21:02 Pulse Oximetry 97 07/12/20 21:02 Const General: cooperative and well developed Nutritional Appearance: well nourished Course Course Course Narrative: Will admit for IV therapy Decision to Admit Date: 07/13/20 Decision to Admit time: 01:25 Orders Ordered: ED Orders 07/12/20 23:17 CT LE RT w con Stat 07/12/20 23:34 Basic Metabolic Panel Stat Complete Blood Count AUTO DIFF Stat Lactate (Lactic Acid) Stat Test Serum,Qual Stat Procalcitonin Stat 07/12/20 23:59 Blood Culture Stat Acetaminophen (Tylenol) 650 mg PO Q6HR PRN PRN Reason: Fever/Mild Pain (1-3) Hydrocodone Bitart/Acetaminophen (Show Low 5/325) 1 tab PO Q4HR PRN PRN Reason: Pain, Moderate (4-6) Sodium Chloride (Normal Saline 0.45%) 1,000 mls @ 100 mls/hr IV CONT BHAKTI Last Admin: 07/13/20 02:52 Dose: 100 mls/hr Documented by: KATALINA Cefazolin Sodium/Dextrose (Ancef) 2 gm in 100 mls @ 200 mls/hr IV Q8H BHAKTI Stop: 07/13/20 12:29 Last Admin: 07/13/20 04:04 Dose: 200 mls/hr Documented by: KATALINA Naloxone HCl (Narcan) 0.2 mg IV Q2MIN PRN PRN Reason: Opiate Reversal Ondansetron HCl (Zofran) 4 mg IV Q6HR PRN PRN Reason: Nausea And Vomiting Discontinued Medications Diphenhydramine HCl (Benadryl) 12.5 mg IV NOW ONE Stop: 07/13/20 02:32 Last Admin: 07/13/20 02:36 Dose: 12.5 mg Documented by: DARIANIN Sodium Chloride (Normal Saline 0.9%) 500 mls @ 1,000 mls/hr IV BOLUS ONE Stop: 07/12/20 23:46 Last Admin: 07/12/20 23:48 Dose: Not Given Documented by: ELIZABETH Sodium Chloride (Normal Saline 0.9%) 1,000 mls @ 1,000 mls/hr IV BOLUS ONE Stop: 07/13/20 00:45 Last Infusion: 07/13/20 01:14 Dose: 0 mls/hr Documented by: Admin: 07/13/20 00:05 Dose: 1,000 mls/hr Documented by: DARIANIN Vancomycin HCl (Vancomycin) 1,000 mg in 200 mls @ 200 mls/hr IV NOW ONE Stop: 07/13/20 02:20 Last Infusion: 07/13/20 02:30 Dose: 0 mls/hr Documented by: Admin: 07/13/20 01:28 Dose: 200 mls/hr Documented by: ELIZABETH Ceftriaxone Sodium/Dextrose (Rocephin) 1 gm in 50 mls @ 100 mls/hr IV Q24H [facility] Last Admin: 07/13/20 03:54 Dose: Not Given Documented by: KATALINA Vancomycin HCl/Dextrose (Vancomycin) 750 mg in 150 mls @ 150 mls/hr IV Q12H [facility] Cefazolin Sodium 2 gm/ Sodium (Chloride) 100 mls @ 200 mls/hr IV Q8H [facility] Stop: 07/13/20 11:16 Last Admin: 07/13/20 03:54 Dose: Not Given Documented by: KATALINA Morphine Sulfate (Morphine) 4 mg IV NOW ONE Stop: 07/12/20 23:18 Last Admin: 07/12/20 23:34 Dose: 4 mg Documented by: ELIZABETH Morphine Sulfate (Morphine) 2 mg IV Q4HR PRN PRN Reason: Pain, Moderate (4-6) Ondansetron HCl (Zofran) 4 mg IV NOW ONE Stop: 08/25/20 23:18 Last Admin: 07/12/20 23:33 Dose: 4 mg Documented by: ELIZABETH Vancomycin HCl (Vancomycin Per Pharmacy) 1 request MISC NOW ONE Stop: 07/13/20 02:30 Last Admin: 07/13/20 03:53 Dose: Not Given Documented by: KATALINA Reevaluation(s) Reevaluation #1: Pain is controlled. Spoke with patient results and agrees with admission overnight for IV therapy Time: :25 Consultations Consultation #1: Spoke with hospitalist, Nandini, will admit Time: :25 Vital Signs Vital signs: Vital Signs - 8 hr 07/12/20 21:02 07/13/20 00:30 07/13/20 01:00 Temperature 98.3 F Pulse Rate 100 H 78 80 Respiratory Rate 16 Blood Pressure 151/81 H 123/70 116/65 Pulse Oximetry 97 96 100 07/13/20 01:30 Temperature Pulse Rate 93 H Respiratory Rate Blood Pressure 125/77 Pulse Oximetry 99 MDM - Skin/Abscess/Foreign Bdy Lab Data Result diagrams: 07/12/20 23:34 07/12/20 23:34 Labs: Lab Results 07/12/20 07/12/20 07/12/20 Range/Units 23:34 23:34 23:34 WBC 8.5 (4.5-11.0) X10^3/uL RBC 4.17 (4.0-5.2) X10^6/uL Hgb 13.1 (12.0-16.0) g/dL Hct 38.8 (36-46) % MCV 92.9 (80-100) fL MCH 31.5 (26-34) PG MCHC 33.9 (30-36) % RDW 13.7 (11.6-14.8) % Plt Count 199 (150-400) X10^3/uL Neut % (Auto) 74.1 (50-75) % Lymph % (Auto) 17.1 L (25-40) % Davison % (Auto) 7.5 (3-14) % Eos % (Auto) 1.0 L (2-4) % Baso % (Auto) 0.3 (0-2) % Neut # (Auto) 6300 (6498-0142) /uL Lymph # (Auto) 1400 (6276-3727) /uL Davison # (Auto) 600 (0-900) /uL Eos # (Auto) 100 (0-450) /uL Baso # (Auto) 0 (0-100) /uL Sodium 136 L (137-145) mmol/L Potassium 3.9 (3.4-5.1) mmol/L Chloride 103 (98-107) mmol/L Carbon Dioxide 25 (22-32) mmol/L BUN 5 L (7-17) mg/dL Creatinine 1.02 (0.52-1.04) mg/dL Estimated GFR > 60.0 (>60) mL/min BUN/Creatinine Ratio 4.9 L (6-22) Glucose 94 (70-100) mg/dL Lactate (0.7-2.1) mmol/L Calcium 9.7 (8.4-10.2) mg/dL Procalcitonin < 0.05 (<0.5) ng/mL Serum , Qual Negative (Negative) COVID-19 PCR (Negative) 07/12/20 07/13/20 Range/Units 23:34 01:36 WBC (4.5-11.0) X10^3/uL RBC (4.0-5.2) X10^6/uL Hgb (12.0-16.0) g/dL Hct (36-46) % MCV (80-100) fL MCH (26-34) PG MCHC (30-36) % RDW (11.6-14.8) % Plt Count (150-400) X10^3/uL Neut % (Auto) (50-75) % Lymph % (Auto) (25-40) % Davison % (Auto) (3-14) % Eos % (Auto) (2-4) % Baso % (Auto) (0-2) % Neut # (Auto) (8270-7947) /uL Lymph # (Auto) (5335-5433) /uL Davison # (Auto) (0-900) /uL Eos # (Auto) (0-450) /uL Baso # (Auto) (0-100) /uL Sodium (137-145) mmol/L Potassium (3.4-5.1) mmol/L Chloride (98-107) mmol/L Carbon Dioxide (22-32) mmol/L BUN (7-17) mg/dL Creatinine (0.52-1.04) mg/dL Estimated GFR (>60) mL/min BUN/Creatinine Ratio (6-22) Glucose (70-100) mg/dL Lactate 0.9 (0.7-2.1) mmol/L Calcium (8.4-10.2) mg/dL Procalcitonin (<0.5) ng/mL Serum , Qual (Negative) COVID-19 PCR Negative (Negative) Imaging Data CT scan with contrast right lower extremity: Radiologist's Impression: Anterior knee cellulitis no visible abscess MDM Narrative Medical decision making narrative: Not improving with outpatient antibiotics. Will admit. Discharge Plan Departure Patient Disposition: Admitted as Observation Clinical Impression: Cellulitis Qualifiers: Site of cellulitis: extremity Site of cellulitis of extremity: lower extremity Laterality: right Qualified Code(s): L03.115 - Cellulitis of right lower limb Discharge Date/Time: 07/13/20 02:50 Referrals: Alex Nunes MD [Primary Care Provider] - Admit Date/Time: 07/13/20 02:21 Admit Provider: Trisha Castellano
[2020-07-12] MEDS: ONDANSETRON 4 MG/2 ML INJ IV (23:33)
[2020-07-12] MEDS: MORPHINE 4 MG/ML INJ IV (23:34)
[2020-07-12 23:42] LABS: Add Manual Diff / Slide Review NO; Basophils Absolute Auto 0 /uL (0-100); Basophils Percent Auto 0.3 % (0-2); Eosinophils Absolute Auto 100 /uL (0-450); Hematocrit 38.8 % (36-46); Hemoglobin 13.1 g/dL (12.0-16.0); Lymphocytes Absolute Auto 1400 /uL (1100-4500); Lymphocytes Percent Auto 17.1 % (25-40); Mean Corpuscular HGB Conc 33.9 % (30-36); Mean Corpuscular Hemoglobin 31.5 PG (26-34); Mean Corpuscular Volume 92.9 fL (80-100); Monocytes Absolute Auto 600 /uL (0-900); Monocytes Percent Auto 7.5 % (3-14); Neutrophils Absolute Auto 6300 /uL (1500-7000); Neutrophils Percent Auto 74.1 % (50-75); Platelet Count 199 X10^3/uL (150-400); Red Blood Cell Count 4.17 X10^6/uL (4.0-5.2); Red Cell Distribution Width 13.7 % (11.6-14.8); White Blood Cell Count 8.5 X10^3/uL (4.5-11.0)
[2020-07-12 23:53] LABS: BUN Creatinine Ratio 4.9 (6-22); Blood Urea Nitrogen 5 mg/dL (7-17); Calcium 9.7 mg/dL (8.4-10.2); Carbon Dioxide 25 mmol/L (22-32); Chloride 103 mmol/L (98-107); Estimated Glomerular Filt Rate > 60.0 mL/min (>60); Glucose 94 mg/dL (70-100); HEMOLYSIS < 15 (0-50); Lactate (Lactic Acid) 0.9 mmol/L (0.7-2.1); Potassium 3.9 mmol/L (3.4-5.1); Sodium 136 mmol/L (137-145)
[2020-07-12 23:57] LABS: Pregnancy Test Serum,Qual Negative (Negative)
[2020-07-13] MEDS: SODIUM CHLORIDE 0.9% 1,000 ML 1000 ML IV (00:05)
[2020-07-13 00:11] LABS: Procalcitonin < 0.05 ng/mL (<0.5)
[2020-07-13 00:30] VITALS: BP 123/70; PULSE 78; O2SAT 96
[2020-07-13 01:00] VITALS: BP 116/65; PULSE 80; O2SAT 100
[2020-07-13] MEDS: VANCOMYCIN 1,000 MG/200 ML PIGGYBACK 200 MG IV (01:28)
[2020-07-13 01:30] VITALS: BP 125/77; PULSE 93; O2SAT 99
[2020-07-13] MEDS: diphenhydrAMINE 50 MG/ML VIAL 12.5 MG IV (02:36)
--- NOTE | 2020-07-13 02:38 | PC.NURSE ---
patient called and states that she feels itchy on her back and abdomen. Vancomycin still infusing at 200mls/hr with 146mls already infused. I stopped the Vancomycin and provider notified. provider ordered benadryl 12.5mg IV. accepting provider EMERITA Castellano notified and wants the rate dropped to slow the medication down. ER provider notified and no new orders at this time.
[2020-07-13 02:39] LABS: COVID19 -Nasal RAPID Negative (Negative)
[2020-07-13] MEDS: SODIUM CHLORIDE 0.45% 1,000 ML 100 ML IV (02:52)
[2020-07-13 02:59] VITALS: BMI 25.5
[2020-07-13 03:00] VITALS: BP 149/93; PULSE 97; RESP 16; TEMP 37.3; O2SAT 100
--- NOTE | 2020-07-13 03:11 | P.HP_ITS ---
History of Present Illness History of Present Illness Date Patient Seen: 07/13/20 Time Patient Seen: 03:00 Chief complaint: leg pain Narrative: Kimberly Jessica is a very pleasant 34-year-old female who was apparently seen over the weekend for a spider bite over her right knee. She was diagnosed with a cellulitis and given Bactrim oral antibiotics and discharged. She returned to the ED due to increased redness and swelling and inability to flex her knee. She had apparently tried to express fluid out of her knee initially able to express clear serous fluid. It got quite red and then she applied hide compresses and was able to express a cream-colored substance from her knee. It became very painful and started to extend beyond the area that was marked so she decided to come back into the emergency department. She is currently on her menses is, she does not take any prescription medications nor has any chronic health issues. She denies any fever sweats or chills, she became a little bit nauseous after being administered IV morphine, she denies difficulty breathing, or feeling like she has throat swelling. She states that she is very sensitive to both alcohol and medications and needs very low doses for them to become affective. she did seem to have a reaction to the vancomycin when they gave her her 1st dose in the ED stating that she was itching and became quite red. She was given a dose of Benadryl in the ED. She is mildly febrile at 99.2, blood pressure 143/93, heart rate 97, respiratory rate 16, oxygen saturation of 100% on room air, she is 65.5 kg with a BMI of 25.5. CBC is all within normal limits, sodium is mildly low at 136, lactate is within normal limits procalcitonin negative and COVID-19 B is negative. Patient History Medical History PTSD (post-traumatic stress disorder) (Acute) Recurrent abdominal pain (Acute) Surgical History Previous section (Acute) Family & Social History Social History: household members spouse,children Prior Living Arrangements House Safety & Behavioral: Feels Safe in Current Yes Environment Been Physically Hurt or No Threatened By a Person Suicidal Ideation Description None Suicide Plan Description No Plan Tobacco & Substance use: Smoking Status Never smoker alcohol intake infrequent alcohol intake frequency rare Substance Use Type does not use Meds Home Medications and Allergies Home Medications Medication Instructions Recorded Confirmed Type melatonin 10 mg PO BEDTIME PRN 02/04/19 07/10/20 History sulfamethoxazole-trimethoprim 1 tab PO DAILY 7 Days tab 07/10/20 Rx [Bactrim DS] Allergies Allergy/AdvReac Type Severity Reaction Status Date / Time No Known Drug Allergies Allergy Verified 07/10/20 12:30 Review of Systems Review of Systems ROS: Yes All systems reviewed with the patient and are negative except as otherwise documented Exam Vital Signs (past 8 hours): - 07/12/20 21:02 07/13/20 00:30 07/13/20 01:00 Temperature 98.3 F Pulse Rate 100 H 78 80 Respiratory Rate 16 Blood Pressure 151/81 H 123/70 116/65 Pulse Oximetry 97 96 100 07/13/20 01:30 Temperature Pulse Rate 93 H Respiratory Rate Blood Pressure 125/77 Pulse Oximetry 99 Oxygen Delivery Method Room Air Narrative Exam Narrative: Gen: Alert, oriented, well-developed 34 y.o. female, NAD HEENT: normocephalic, atraumatic, conjunctiva clear, sclera non-icteric, oral mucosa pink and moist Neck: supple, full ROM, no JVD, trachea is midline Resp: Lungs CTA, non-labored breathing CV: RRR, no murmur or rubs Abd: soft, non-tender, normoactive BTs Skin: Indurated area on top of her right patella area with a punctate lesion it is slightly warmer to touch than the surrounding skin Neuro: Alert and oriented X 4 w/no focal deficits. Speech clear and coherent. Extremities: Flexion of the right knee is limited with by pain, is ambulatory, negative Jerica?s sign Psyche: Very pleasant, normal mood and affect. Objective Labs Result Diagrams: 07/12/20 23:34 07/12/20 23:34 Labs: Laboratory Results - last 24 hr 07/12/20 07/12/20 07/12/20 23:34 23:34 23:34 WBC 8.5 RBC 4.17 Hgb 13.1 Hct 38.8 MCV 92.9 MCH 31.5 MCHC 33.9 RDW 13.7 Plt Count 199 Neut % (Auto) 74.1 Lymph % (Auto) 17.1 L [place] % (Auto) 7.5 Eos % (Auto) 1.0 L Baso % (Auto) 0.3 Neut # (Auto) 6300 Lymph # (Auto) 1400 [place] # (Auto) 600 Eos # (Auto) 100 Baso # (Auto) 0 Sodium 136 L Potassium 3.9 Chloride 103 Carbon Dioxide 25 BUN 5 L Creatinine 1.02 Estimated GFR > 60.0 BUN/Creatinine Ratio 4.9 L Glucose 94 Lactate Calcium 9.7 Procalcitonin < 0.05 Serum , Qual Negative COVID-19 PCR 07/12/20 07/13/20 23:34 01:36 WBC RBC Hgb Hct MCV MCH MCHC RDW Plt Count Neut % (Auto) Lymph % (Auto) [place] % (Auto) Eos % (Auto) Baso % (Auto) Neut # (Auto) Lymph # (Auto) [place] # (Auto) Eos # (Auto) Baso # (Auto) Sodium Potassium Chloride Carbon Dioxide BUN Creatinine Estimated GFR BUN/Creatinine Ratio Glucose Lactate 0.9 Calcium Procalcitonin Serum , Qual COVID-19 PCR Negative Assessment & Plan Assessment & Plan narrative: Patrice Jessica will be observed overnight and administered IV antibiotics for presu med superimposed infection upon an insect bite site. Presume superimposed infection upon a likely insect bite -IV cefazolin 2 g q.8 hours -vancomycin is discontinued -pain control with oral Tylenol 650 mg q.6 hours as needed for fever pain and Vicodin 2.5 to 5/325 as needed q.6 hours -patient does not meet sepsis criteria Consults: none Patient is admitted under inpatient status with expected length of stay greater than 2 midnights due to severity of presenting symptoms, risk of adverse event, and complexity of treatment plan. FEN: IV saline lock, regular diet, BMP in the am. VTE prophylaxis: patient is ambulatory and active, left sided aida hose Dispo: Probable discharge to home, recommend doxycyline for discharge Code Status: Full code as discussed with patient
--- NOTE | 2020-07-13 03:56 | PC.ADMIT ---
Addendum entered by Lauren Lees R.N. 07/13/20 05:34: Medicated with Tylenol for complaint of 6/10 headache and 5/10 right knee pain; declines any stronger pain medication. Original Note: Patient admitted to room 205 per stretcher from ER. Reports she had spider bite on right knee and left lower abdomen. Has been on po antibiotics at home but began having excruciating pain so came to ER. Had at one point expressed a creamy fluid from knee. Currently right knee is red, warm and swollen with a pinpoint darker center. Had pain med in ER and denies pain at this time, but cannot tolerate any pressure on area and has difficulty flexing knee. She is alert and oriented. Breath sounds CTA with RA sat of 100%. HRR but does have elevated BP of 149/93 and FEED MANAGEMENT ADVISOR is aware. Denies nausea. BT present and abdomen is soft. Bandaid over spider bite on left lower abdomen/hip. Small bruise noted on right lateral hip. Is able to move self in bed. Does need assistance to get up to bathroom due to decreased ROM in right knee. TATYANA stocking applied to left LE as per order. Fall risk score is moderate; patient verbalizes agreement to call for assistance when getting out of bed. Oriented to call light and bed controls. [facility] Admission Note: The patient,Patrice Jessica,34 y/o, was given written information regarding hospital policies, unit procedures and contact persons. Patient's smoking status: Never smoker. Vital Signs - 8 hr 07/12/20 21:02 07/13/20 00:30 07/13/20 01:00 Temperature 98.3 F Pulse Rate 100 H 78 80 Respiratory Rate 16 Blood Pressure 151/81 H 123/70 116/65 Pulse Oximetry 97 96 100 07/13/20 01:30 07/13/20 03:00 Temperature 99.2 F Pulse Rate 93 H 97 H Respiratory Rate 16 Blood Pressure 125/77 149/93 H Pulse Oximetry 99 100
[2020-07-13] MEDS: CEFAZOLIN 2 GM/100 ML FROZ.PIGGY IV ×2 (04:04→12:31)
[2020-07-13] MEDS: ACETAMINOPHEN 325 MG TABLET 650 MG PO (05:32)
[2020-07-13 06:55] LABS: Add Manual Diff / Slide Review NO; Basophils Absolute Auto 0 /uL (0-100); Basophils Percent Auto 0.5 % (0-2); Eosinophils Absolute Auto 100 /uL (0-450); Eosinophils Percent Auto 1.3 % (2-4); Hematocrit 35.6 % (36-46); Hemoglobin 11.9 g/dL (12.0-16.0); Lymphocytes Absolute Auto 1100 /uL (1100-4500); Lymphocytes Percent Auto 16.7 % (25-40); Mean Corpuscular HGB Conc 33.4 % (30-36); Mean Corpuscular Hemoglobin 31.1 PG (26-34); Monocytes Absolute Auto 600 /uL (0-900); Monocytes Percent Auto 10.1 % (3-14); Neutrophils Absolute Auto 4500 /uL (1500-7000); Neutrophils Percent Auto 71.4 % (50-75); Platelet Count 174 X10^3/uL (150-400); Red Blood Cell Count 3.83 X10^6/uL (4.0-5.2); Red Cell Distribution Width 13.5 % (11.6-14.8); White Blood Cell Count 6.4 X10^3/uL (4.5-11.0)
[2020-07-13 07:07] LABS: BUN Creatinine Ratio 5.3 (6-22); Blood Urea Nitrogen 5 mg/dL (7-17); Calcium 8.9 mg/dL (8.4-10.2); Carbon Dioxide 26 mmol/L (22-32); Chloride 104 mmol/L (98-107); Estimated Glomerular Filt Rate > 60.0 mL/min (>60); Glucose 90 mg/dL (70-100); HEMOLYSIS < 15 (0-50); Potassium 4.2 mmol/L (3.4-5.1); Sodium 137 mmol/L (137-145)
[2020-07-13 07:12] VITALS: BP 100/62; PULSE 60; RESP 18; TEMP 36.9; O2SAT 100
[2020-07-13] MEDS: TRAMADOL 50 MG TABLET PO (12:30)
[2020-07-13] MEDS: TRIMETH/SULFA 160/800 (DS) TABLET 1 TAB PO (12:30)
--- NOTE | 2020-07-13 13:21 | PM.DS.1 ---
History of Present Illness History of Present Illness Chief complaint: leg pain Narrative: Kimberly Jessica is a very pleasant 34-year-old female who was apparently seen over the weekend for a spider bite over her right knee. She was diagnosed with a cellulitis and given Bactrim oral antibiotics and discharged. She returned to the ED due to increased redness and swelling and inability to flex her knee. She had apparently tried to express fluid out of her knee initially able to express clear serous fluid. It got quite red and then she applied hide compresses and was able to express a cream-colored substance from her knee. It became very painful and started to extend beyond the area that was marked so she decided to come back into the emergency department. She is currently on her menses is, she does not take any prescription medications nor has any chronic health issues. She denies any fever sweats or chills, she became a little bit nauseous after being administered IV morphine, she denies difficulty breathing, or feeling like she has throat swelling. She states that she is very sensitive to both alcohol and medications and needs very low doses for them to become affective. she did seem to have a reaction to the vancomycin when they gave her her 1st dose in the ED stating that she was itching and became quite red. She was given a dose of Benadryl in the ED. She is mildly febrile at 99.2, blood pressure 143/93, heart rate 97, respiratory rate 16, oxygen saturation of 100% on room air, she is 65.5 kg with a BMI of 25.5. CBC is all within normal limits, sodium is mildly low at 136, lactate is within normal limits procalcitonin negative and COVID-19 B is negative. Discharge Providers Provider Date of admission: 07/13/20 02:21 Discharge Date: 07/13/20 Primary care physician: Alex Nunes MD Discharge provider: Cong Jane MD Summary Hospital Course Discharge Diagnosis: 1. Right lower extremity cellulitis involving anterior knee Hospital Course: Patient was admitted overnight due to cellulitis involving the right knee with failure of a couple days outpatient oral antibiotic. She had normal WBC, normal procalcitonin, no fever. She was given vancomycin in the ED in then started on cephazolin which she got 2 doses prior to discharge. The leg appearance is stable. She is being discharged back on oral antibiotics as area of cellulitis is fairly localized around the knee and she has no concerning vitals or laboratory findings. Id also turns out that her Bactrim DS had been prescribed daily instead of twice daily from 07/10 ER visit. She is being discharged on Bactrim ds 1 tablet b.i.d. and cephalexin 500 mg q.i.d. both for 1 week. Status at Discharge Cognitive/behavioral status at discharge: oriented Functional status at discharge: independent ambulation Time Spent with Patient Time spent: Less than 30 minutes Exam Vital Signs (past 8 hours): - 07/13/20 07:12 Temperature 98.4 F Pulse Rate 60 Respiratory Rate 18 Blood Pressure 100/62 Pulse Oximetry 100 Oxygen Delivery Method Room Air Oxygen Flow Rate 0 Objective Labs Result Diagrams: 07/13/20 06:40 07/13/20 06:40 Labs: Laboratory Results - last 24 hr 07/12/20 07/12/20 07/12/20 23:34 23:34 23:34 WBC 8.5 RBC 4.17 Hgb 13.1 Hct 38.8 MCV 92.9 MCH 31.5 MCHC 33.9 RDW 13.7 Plt Count 199 Neut % (Auto) 74.1 Lymph % (Auto) 17.1 L [place] % (Auto) 7.5 Eos % (Auto) 1.0 L Baso % (Auto) 0.3 Neut # (Auto) 6300 Lymph # (Auto) 1400 [place] # (Auto) 600 Eos # (Auto) 100 Baso # (Auto) 0 Sodium 136 L Potassium 3.9 Chloride 103 Carbon Dioxide 25 BUN 5 L Creatinine 1.02 Estimated GFR > 60.0 BUN/Creatinine Ratio 4.9 L Glucose 94 Lactate Calcium 9.7 Procalcitonin < 0.05 Serum , Qual Negative COVID-19 PCR 07/12/20 07/13/20 07/13/20 23:34 01:36 06:40 WBC 6.4 RBC 3.83 L Hgb 11.9 L Hct 35.6 L MCV 93.0 MCH 31.1 MCHC 33.4 RDW 13.5 Plt Count 174 Neut % (Auto) 71.4 Lymph % (Auto) 16.7 L [place] % (Auto) 10.1 Eos % (Auto) 1.3 L Baso % (Auto) 0.5 Neut # (Auto) 4500 Lymph # (Auto) 1100 [place] # (Auto) 600 Eos # (Auto) 100 Baso # (Auto) 0 Sodium Potassium Chloride Carbon Dioxide BUN Creatinine Estimated GFR BUN/Creatinine Ratio Glucose Lactate 0.9 Calcium Procalcitonin Serum , Qual COVID-19 PCR Negative 07/13/20 06:40 WBC RBC Hgb Hct MCV MCH MCHC RDW Plt Count Neut % (Auto) Lymph % (Auto) [place] % (Auto) Eos % (Auto) Baso % (Auto) Neut # (Auto) Lymph # (Auto) [place] # (Auto) Eos # (Auto) Baso # (Auto) Sodium 137 Potassium 4.2 Chloride 104 Carbon Dioxide 26 BUN 5 L Creatinine 0.95 Estimated GFR > 60.0 BUN/Creatinine Ratio 5.3 L Glucose 90 Lactate Calcium 8.9 Procalcitonin Serum , Qual COVID-19 PCR Discharge Plan Discharge Plan Patient Disposition: Home Discharge orders & Medications Prescriptions: New tramadol 50 mg tablet 50 mg PO Q6H PRN (Reason: pain) Qty: 14 RF: 0 cephalexin 500 mg tablet 500 mg PO QID Qty: 28 RF: 0 sulfamethoxazole-trimethoprim [Bactrim DS] 800-160 mg tablet 1 tab PO BID Qty: 14 RF: 0 Continued melatonin 10 mg Tablet 5 mg PO BEDTIME PRN (Reason: Insomnia) RF: 0 Discontinued sulfamethoxazole-trimethoprim [Bactrim DS] 800-160 mg tablet 1 tab PO DAILY 7 Days RF: 0 Follow up/Referrals: Alex Nunes MD [Primary Care Provider] - Visit Report/Discharge Packet Instructions: DI for Cellulitis -- Adult, Cellulitis, Cephalexin (By mouth), Sulfamethoxazole/Trimethoprim (By mouth) Discharge Data Primary Care Provider: Alex Nunes
--- NOTE | 2020-07-13 14:54 | CM.DANOTE ---
DCP Discharge Home Patient is a 34 year old female who was admitted on 07/13/20 for leg pain. Pt has [employer] for insurance and her PCP is Dr. Alex Nunes. EMR was reviewed. Per MD, pt was admitted after seeming to fail outpt oral abx for spider/insect bite infection and was given a couple doses of IV-Abx and now stable for d/c home on oral abx. No identified barriers to discharge. Pt resides in [place] with her and kids and is active and independent at baseline and no needs identified. No bedside assessment completed due to triage needs and no concerns. Plan: Patient discharged home via spouse POV and oral abx and no SW needs at this time. DANIEL Arita
== END 2020-07-13 14:12 | disposition home or self-care (01) ==
LOC: ED 07-13 01:26 → AC 07-13 08:32
PROVIDERS: Admitting Provider Nurse Practitioner Family; Emergency Provider Emergency Medicine; PCP General Practice; Visit Provider Nurse Practitioner Family
DX: L03.115 Cellulitis of right lower limb (principal); T63.301A Toxic effect of unspecified spider venom, accidental (unintentional), initial encounter; Z11.59 Encounter for screening for other viral diseases
CPT/HCPCS: 36415; 73701; 80048; 83605; 84145; 84703; 85025; 87040; 87635; 99284; G0378; J0690; J1200; J2270; J2405; J7050; Q9967

== ENCOUNTER → 2020-11-24 07:37 | Outpatient (CLI) | payer OTHER, SELFPAY ==
--- NOTE | 2020-11-24 | DI.NM.S_ITS ---
PROCEDURE: [place] HIDA WITH CCK PHARMACEUTICAL: 5.5 mCi Tc-99m mebrofenin IV; 0.7 mcg CCK IV. INDICATIONS: Abdominal distension (gaseous) TECHNIQUE: Following intravenous administration of Tc-99m mebrofenin, sequential anterior abdominal images were obtained. To evaluate the contractile response of the gallbladder in response to Cholecystokinin (CCK), sincalide (0.02 ?g/kg) was administered by slow intravenous infusion approximately 60 minutes after the administration of the radiopharmaceutical. Sequential imaging was continued for 30 minutes after the start of CCK infusion. Gallbladder ejection fraction was calculated. COMPARISON: [facility], [place], [place] GASTRIC EMPTYING STUDY, 01/12/2020, 10:00. Former[facility], CT, CT ABDOMEN PELVIS W CON, 11/23/2019, 19:43. Former[facility], US, US ABDOMEN COMPLETE, 04/10/2019, 12:13. FINDINGS: Biliary scan: There is normal tracer uptake and excretion by the liver. There is normal visualization of the intrahepatic ducts, common bile duct, and gallbladder. There is normal tracer transit into the duodenum. CCK stimulation: There is normal contractile response of the gallbladder to CCK infusion. The calculated gallbladder ejection fraction is 94% ; normal values are above 35%. IMPRESSION: 1. Normal filling of gallbladder. No evidence for acute cholecystitis. 2. Normal contractile response of gallbladder to CCK stimulation. Dictated by: Pritesh Hall M.D. on 11/24/2020 at 10:24 Approved by: Pritesh Hall M.D. on 11/24/2020 at 10:30
== END ==
PROVIDERS: PCP General Practice; Referring Provider Student in an Organized Health Care Education/Training Program; Visit Provider Student in an Organized Health Care Education/Training Program
DX: R14.0 Abdominal distension (gaseous) (principal)
CPT/HCPCS: 78227; A9537; J2805

== ENCOUNTER 2021-02-06 12:32 | Emergency (ER) | payer OTHER, SELFPAY ==
[2021-02-06] VITALS (15 sets, daily range): BP systolic 101–130; BP diastolic 58–88; PULSE 78–97; RESP 11–25; TEMP 36.7; O2SAT 96–100
[2021-02-06] MEDS: MORPHINE 4 MG/ML INJ IV (13:59)
[2021-02-06] MEDS: ONDANSETRON 4 MG/2 ML INJ IV (13:59)
[2021-02-06] MEDS: SODIUM CHLORIDE 0.9% 1,000 ML 1000 ML IV ×2 (14:00→17:27)
[2021-02-06 14:22] LABS: Add Manual Diff / Slide Review NO; Basophils Absolute Auto 0 /uL (0-100); Basophils Percent Auto 0.3 % (0-2); Eosinophils Absolute Auto 0 /uL (0-450); Eosinophils Percent Auto 0.1 % (2-4); Hematocrit 40.6 % (36-46); Hemoglobin 13.7 g/dL (12.0-16.0); Lymphocytes Absolute Auto 900 /uL (1100-4500); Lymphocytes Percent Auto 6.4 % (25-40); Mean Corpuscular HGB Conc 33.8 % (30-36); Mean Corpuscular Hemoglobin 31.2 PG (26-34); Mean Corpuscular Volume 92.3 fL (80-100); Monocytes Absolute Auto 700 /uL (0-900); Monocytes Percent Auto 5.2 % (3-14); Neutrophils Absolute Auto 12000 /uL (1500-7000); Platelet Count 234 X10^3/uL (150-400); Red Cell Distribution Width 13.5 % (11.6-14.8); White Blood Cell Count 13.6 X10^3/uL (4.5-11.0)
[2021-02-06 14:30] LABS: INR 1.1 (0.9-1.3); Prothrombin Time 11.9 SECONDS (10.1-12.7)
[2021-02-06 14:33] LABS: PTT Partial Thromboplastin Tim 27 SECONDS (26.4-36.2)
[2021-02-06 14:37] LABS: Alanine Aminotransferase 11 IU/L (<35); Albumin 4.8 g/dL (3.5-5.0); Albumin Globulin Ratio 1.3 (1.0-2.8); Alkaline Phosphatase 73 U/L (38-126); Aspartate Aminotransferase 22 IU/L (14-36); BUN Creatinine Ratio 12.3 (6-22); Bilirubin Total 0.4 mg/dL (0.2-1.3); Blood Urea Nitrogen 10 mg/dL (7-17); Calcium 10.1 mg/dL (8.4-10.2); Carbon Dioxide 25 mmol/L (22-32); Chloride 100 mmol/L (98-107); Estimated Glomerular Filt Rate > 60.0 mL/min (>60); Globulin 3.6 g/dL (1.7-4.1); Glucose 108 mg/dL (70-100); HEMOLYSIS < 15 (0-50); Lipase 74 U/L (23-300); Sodium 135 mmol/L (137-145); Total Protein 8.4 g/dL (6.3-8.2)
[2021-02-06 14:50] LABS: D Dimer 283 ng/mL (<230)
[2021-02-06 14:52] LABS: Procalcitonin < 0.03 ng/mL (<0.5)
[2021-02-06] MEDS: HYDROMORPHONE 1 MG INJ IV (15:03)
[2021-02-06 15:28] LABS: Appearance Urine UA CLOUDY; Bilirubin Urine UA NEGATIVE (NEGATIVE); Color Urine UA RED; Glucose Urine UA NEGATIVE (Negative); Ketones Urine UA 1+ (NEGATIVE); Leukocyte Esterase Urine UA 2+ (NEGATIVE); Nitrite Urine UA POSITIVE (Negative); Occult Blood Urine UA 3+ (Negative); Protein Urine UA 2+ (Negative); Urobilinogen Urine UA 0.2 E.U./dL (0.2)
[2021-02-06 15:31] LABS: Pregnancy Test Urine Negative (Negative)
[2021-02-06 15:37] LABS: pH Urine UA 7.5 (4.5-8.0)
--- NOTE | 2021-02-06 15:44 | DI.CT.S_ITS ---
PROCEDURE: CT ABDOMEN PELVIS W CON INDICATIONS: rlq, r flank pain TECHNIQUE: After the administration of intravenous contrast, 5 mm thick sections acquired from the diaphragm to the symphysis. 5 mm coronal and sagittal reformats were acquired. For radiation dose reduction, the following was used: automated exposure control, adjustment of mA and/or kV according to patient size. COMPARISON: [facility], CT, CT ABDOMEN PELVIS W CON, 11/23/2019, 19:43. FINDINGS: Image quality: Excellent. ABDOMEN: Lung bases: Lung bases are clear. Heart size is normal. Solid organs: Liver is normal in size and enhancement. A cyst is again seen in the left hepatic lobe. Gallbladder appears normal. Biliary system is non dilated. Pancreas enhances normally. Spleen is normal in size and enhancement. No adrenal nodules. Kidneys demonstrate normal size and enhancement, without hydronephrosis. There is mild hyperenhancement of the urothelium in the right renal pelvis and right ureter. Subcentimeter hypodensities in both kidneys are too small to characterize, but likely represents cyst. Peritoneum and bowel: Bowel loops demonstrate normal wall thickness and caliber. Normal appendix. No free fluid or air. Nodes and vessels: No retroperitoneal or mesenteric adenopathy by size criteria. Aorta and inferior vena cava are normal in size. Miscellaneous: No ventral hernias. PELVIS: Genitourinary: There is mild diffuse bladder wall thickening versus underdistention. Miscellaneous: No inguinal hernias or adenopathy. Bones: No suspicious bony lesions. No vertebral body compression fractures. IMPRESSION: Mild bladder wall thickening is suspicious for cystitis. There is also mild enhancement of the nava of the right ureter and right renal pelvis that may indicate ascending infection/pyelitis. The right kidney maintains normal enhancement. Recommend correlation with urinalysis. Dictated by: Kamar Reyes M.D. on 02/06/2021 at 15:58 Approved by: Kamar Reyes M.D. on 02/06/2021 at 16:05
[2021-02-06 15:56] LABS: Amorphous Sediment Urine 2+; Bacteria Urine Many (>30); Culture Indicated Urine Specimen Cultured; Mucus Urine 1+ (Negative); RBC Urine 30-100/HPF (0-5/HPF); Squamous Epithelial Cell Urine 1-5 /HPF (0-5/HPF); WBC Urine 30-100/HPF (0-5/HPF)
--- NOTE | 2021-02-06 16:27 | ED.ABDPAIN ---
HPI - Abdominal Pain <JAMAL Collins - Last Filed: 02/06/21 19:02> General Chief Complaint: Abdominal Pain Stated Complaint: bad right side pain, nausea Time Seen by Provider: 02/06/21 13:17 Source: patient Mode of arrival: Wheelchair Limitations: no limitations History of Present Illness HPI narrative: The patient is a 35-year-old female nonsmoker with history of cellulitis who presents with a chief complaint of sudden onset of right flank and right abdomen pain that started at 10:00 a.m. this morning. She states that she had dysuria urgency and frequency related to ?a early UTI on Saturday, but she tried to flush it by pushing fluids. Subsequently those symptoms have improved greatly. However this morning she felt like her right side was in a vice. She did not take anything for pain. She denies any fevers, complains of nausea but no vomiting. Denies any vaginal discharge. [place]. She denies any surgical history other than a section, also has had tubal ligation. Related Data Home Medications Medication Instructions Recorded Confirmed melatonin 5 mg PO BEDTIME PRN 02/04/19 07/13/20 Previous Rx's Medication Instructions Recorded cephalexin 500 mg PO QID #28 tab 07/13/20 sulfamethoxazole-trimethoprim 1 tab PO BID #14 tab 07/13/20 [Bactrim DS] tramadol 50 mg PO Q6H PRN #14 tab 07/13/20 ciprofloxacin HCl 500 mg PO BID #14 tab 02/06/21 ketorolac 10 mg PO TID PRN #14 tab 02/06/21 ondansetron 4 mg PO Q6H PRN #20 tab 02/06/21 tramadol 50 mg PO Q6H PRN #10 tab 02/06/21 Allergies Allergy/AdvReac Type Severity Reaction Status Date / Time No Known Drug Allergies Allergy Verified 02/06/21 12:57 Review of Systems <JAMAL Collins - Last Filed: 02/06/21 19:02> Review of Systems Narrative: GENERAL: Denies chills, fatigue, malaise, fever, sweats. HEENT: Denies sinus pain, ear pain, sore throat, difficulty swallowing, dizziness. RESPIRATORY: Denies dyspnea, cough, wheezing, hemoptysis, sputum. CARDIOVASCULAR: Denies chest pain, palpitations, orthopnea, edema, GASTROINTESTINAL: See HPI : See HPI MUSCULOSKELETAL: denies weakness, joint pain, or bony pain SKIN: Denies rash, skin lesions, or other NEUROLOGIC: Denies weakness, headache, numbness, change in speech, confusion, seizures, incoordination. PSYCHIATRIC: No concerning psychosocial issues. 12 point review of systems is negative except for those stated above Patient History <JAMAL Collins - Last Filed: 02/06/21 19:02> Medical History (Updated 02/06/21 @ 18:34 by JAMAL Collins) PTSD (post-traumatic stress disorder) Recurrent abdominal pain Surgical History Previous section Social History household members: spouse and children Smoking Status: Never smoker alcohol intake: former Smoking Status: Never smoker alcohol intake frequency: 0-2 drinks per day Substance Use Type: does not use Exam <JAMAL Collins - Last Filed: 02/06/21 19:02> Narrative Exam Narrative: GENERAL: This is a well-nourished, well-developed patient, teary HEAD: Atraumatic. Normocephalic. No temporal or scalp tenderness. EYES: Pupils equal round and reactive. Extraocular motions intact. No scleral icterus. No injection or drainage. ENT: Nose without bleeding, purulent drainage or septal hematoma. Wearing a Airway patent. NECK: Trachea midline. No JVD or lymphadenopathy. Supple, nontender, no meningeal signs. CARDIOVASCULAR: Regular rate and rhythm RESPIRATORY: Clear to auscultation. Breath sounds equal bilaterally. No wheezes, rales, or rhonchi. No cough. No increased respiratory effort. No accessory muscle use. GASTROINTESTINAL: Abdomen soft, right-sided tenderness, nondistended. No hepato-splenomegaly, or palpable masses. No guarding. Active bowel sounds all 4 quadrants EXTREMITIES: No clubbing, cyanosis, or edema. No joint tenderness, effusion, or edema noted. BACK: Nontender without deformity or crepitance. CVA tenderness right side NEURO: AOx3. SKIN: No rash or erythema on visible skin Initial Vital Signs Initial Vital Signs: Vital Signs Temperature 98.0 F 02/06/21 12:53 Pulse Rate 97 H 02/06/21 12:53 Respiratory Rate 24 02/06/21 12:53 Blood Pressure 125/69 02/06/21 12:53 Pulse Oximetry 100 02/06/21 12:53 <Denice Zaldivar DO - Last Filed: 02/07/21 07:46> Initial Vital Signs Initial Vital Signs: Vital Signs Temperature 98.0 F 02/06/21 12:53 Pulse Rate 97 H 02/06/21 12:53 Respiratory Rate 24 02/06/21 12:53 Blood Pressure 125/69 02/06/21 12:53 Pulse Oximetry 100 02/06/21 12:53 Scores <JAMAL Collins - Last Filed: 02/06/21 19:02> GCS Mikie coma scale eye opening: Spontaneous Mikie coma scale verbal response: Orientated Mikie coma scale motor response: Obey commands Hugo coma scale total score: 15 qSOFA Altered Mental Status (GCS <15): No Respiratory rate greater than/equal to 22: No Systolic blood pressure less than or equal to 100: No qSOFA Total: 0 0-1 Not High Risk 1-3 High risk Course <JAMAL Collins - Last Filed: 02/06/21 19:02> Orders Ordered: Discontinued Medications Ciprofloxacin (Ciprofloxacin 500 Mg Tablet) 500 mg PO NOW ONE Stop: 02/06/21 17:43 Last Admin: 02/06/21 18:10 Dose: 500 mg Documented by: AGUSTÍN Hydromorphone HCl (Hydromorphone 1 Mg Inj) 1 mg IV NOW ONE Stop: 02/06/21 14:45 Last Admin: 02/06/21 15:03 Dose: 1 mg Documented by: AGUSTÍN Sodium Chloride (Normal Saline 0.9%) 1,000 mls @ 1,000 mls/hr IV BOLUS ONE Stop: 02/06/21 14:46 Last Infusion: 02/06/21 15:45 Dose: 0 mls/hr Documented by: Admin: 02/06/21 14:00 Dose: 1,000 mls/hr Documented by: SEVERIANO Sodium Chloride (Normal Saline 0.9%) 1,000 mls @ 1,000 mls/hr IV BOLUS ONE Stop: 02/06/21 18:25 Last Infusion: 02/06/21 18:57 Dose: 0 mls/hr Documented by: Admin: 02/06/21 17:27 Dose: 1,000 mls/hr Documented by: DENEEN Ketorolac Tromethamine (Ketorolac 60 Mg/2 Ml Vial) 30 mg IV NOW ONE Stop: 02/06/21 17:20 Last Admin: 02/06/21 17:28 Dose: 30 mg Documented by: DENEEN Morphine Sulfate (Morphine 4 Mg/Ml Inj) 4 mg IV NOW ONE Stop: 02/06/21 13:47 Last Admin: 02/06/21 13:59 Dose: 4 mg Documented by: SEVERIANO Ondansetron HCl (Ondansetron 4 Mg/2 Ml Inj) 4 mg IV NOW ONE Stop: 02/06/21 12:58 Last Admin: 02/06/21 13:59 Dose: 4 mg Documented by: SEVERIANO Tramadol HCl (Tramadol 50 Mg Tablet) 50 mg PO NOW ONE Stop: 02/06/21 17:43 Last Admin: 02/06/21 18:10 Dose: 50 mg Documented by: AGUSTÍN Vital Signs Vital signs: Vital Signs - 8 hr 02/06/21 12:53 02/06/21 13:03 02/06/21 13:30 Temperature 98.0 F Pulse Rate 97 H 95 H 88 Respiratory Rate 24 Blood Pressure 125/69 Pulse Oximetry 100 99 100 02/06/21 13:56 02/06/21 14:00 02/06/21 14:30 Temperature Pulse Rate 93 H 88 84 Respiratory Rate Blood Pressure 116/65 106/63 109/67 Pulse Oximetry 100 100 100 02/06/21 15:00 02/06/21 15:30 02/06/21 16:00 Temperature Pulse Rate 87 79 94 H Respiratory Rate 25 H 12 16 Blood Pressure 126/73 111/63 106/58 L Pulse Oximetry 100 99 99 02/06/21 16:30 02/06/21 16:52 02/06/21 17:00 Temperature Pulse Rate 79 93 H 83 Respiratory Rate 19 14 11 L Blood Pressure 106/59 L 110/88 130/67 Pulse Oximetry 96 100 100 02/06/21 17:30 02/06/21 18:00 02/06/21 18:30 Temperature Pulse Rate 88 80 78 Respiratory Rate 23 16 11 L Blood Pressure 103/59 L 103/64 101/64 Pulse Oximetry 100 <Denice Zaldivar DO - Last Filed: 02/07/21 07:46> Orders Ordered: Discontinued Medications Ciprofloxacin (Ciprofloxacin 500 Mg Tablet) 500 mg PO NOW ONE Stop: 02/06/21 17:43 Last Admin: 02/06/21 18:10 Dose: 500 mg Documented by: AGUSTÍN Hydromorphone HCl (Hydromorphone 1 Mg Inj) 1 mg IV NOW ONE Stop: 02/06/21 14:45 Last Admin: 02/06/21 15:03 Dose: 1 mg Documented by: AGUSTÍN Sodium Chloride (Normal Saline 0.9%) 1,000 mls @ 1,000 mls/hr IV BOLUS ONE Stop: 02/06/21 14:46 Last Infusion: 02/06/21 15:45 Dose: 0 mls/hr Documented by: Admin: 02/06/21 14:00 Dose: 1,000 mls/hr Documented by: SEVERIANO Sodium Chloride (Normal Saline 0.9%) 1,000 mls @ 1,000 mls/hr IV BOLUS ONE Stop: 02/06/21 18:25 Last Infusion: 02/06/21 18:57 Dose: 0 mls/hr Documented by: Admin: 02/06/21 17:27 Dose: 1,000 mls/hr Documented by: DENEEN Ketorolac Tromethamine (Ketorolac 60 Mg/2 Ml Vial) 30 mg IV NOW ONE Stop: 02/06/21 17:20 Last Admin: 02/06/21 17:28 Dose: 30 mg Documented by: DENEEN Morphine Sulfate (Morphine 4 Mg/Ml Inj) 4 mg IV NOW ONE Stop: 02/06/21 13:47 Last Admin: 02/06/21 13:59 Dose: 4 mg Documented by: SEVERIANO Ondansetron HCl (Ondansetron 4 Mg/2 Ml Inj) 4 mg IV NOW ONE Stop: 02/06/21 12:58 Last Admin: 02/06/21 13:59 Dose: 4 mg Documented by: SEVERIANO Tramadol HCl (Tramadol 50 Mg Tablet) 50 mg PO NOW ONE Stop: 02/06/21 17:43 Last Admin: 02/06/21 18:10 Dose: 50 mg Documented by: BTONER Vital Signs Vital signs: Vital Signs - 8 hr 02/06/21 12:53 02/06/21 13:03 02/06/21 13:30 Temperature 98.0 F Pulse Rate 97 H 95 H 88 Respiratory Rate 24 Blood Pressure 125/69 Pulse Oximetry 100 99 100 02/06/21 13:56 02/06/21 14:00 02/06/21 14:30 Temperature Pulse Rate 93 H 88 84 Respiratory Rate Blood Pressure 116/65 106/63 109/67 Pulse Oximetry 100 100 100 02/06/21 15:00 02/06/21 15:30 02/06/21 16:00 Temperature Pulse Rate 87 79 94 H Respiratory Rate 25 H 12 16 Blood Pressure 126/73 111/63 106/58 L Pulse Oximetry 100 99 99 02/06/21 16:30 02/06/21 16:52 02/06/21 17:00 Temperature Pulse Rate 79 93 H 83 Respiratory Rate 19 14 11 L Blood Pressure 106/59 L 110/88 130/67 Pulse Oximetry 96 100 100 02/06/21 17:30 02/06/21 18:00 02/06/21 18:30 Temperature Pulse Rate 88 80 78 Respiratory Rate 23 16 11 L Blood Pressure 103/59 L 103/64 101/64 Pulse Oximetry 100 MDM - Abdominal Pain <BENJAMIN Collins-BC - Last Filed: 02/06/21 19:02> Lab Data Attestation: I reviewed the patient's lab results. Result diagrams: 02/06/21 14:14 02/06/21 14:14 Labs: Lab Results 02/06/21 02/06/21 02/06/21 Range/Units 14:14 14:14 14:14 WBC 13.6 H (4.5-11.0) X10^3/uL RBC 4.40 (4.0-5.2) X10^6/uL Hgb 13.7 (12.0-16.0) g/dL Hct 40.6 (36-46) % MCV 92.3 (80-100) fL MCH 31.2 (26-34) PG MCHC 33.8 (30-36) % RDW 13.5 (11.6-14.8) % Plt Count 234 (150-400) X10^3/uL Neut % (Auto) 88.0 H (50-75) % Lymph % (Auto) 6.4 L (25-40) % Chambers % (Auto) 5.2 (3-14) % Eos % (Auto) 0.1 L (2-4) % Baso % (Auto) 0.3 (0-2) % Neut # (Auto) 31614 H (9111-4733) /uL Lymph # (Auto) 900 L (5968-4618) /uL Chambers # (Auto) 700 (0-900) /uL Eos # (Auto) 0 (0-450) /uL Baso # (Auto) 0 (0-100) /uL PT 11.9 (10.1-12.7) SECONDS INR 1.1 (0.9-1.3) APTT 27 (26.4-36.2) SECONDS D-Dimer (<230) ng/mL Sodium 135 L (137-145) mmol/L Potassium 4.0 (3.4-5.1) mmol/L Chloride 100 (98-107) mmol/L Carbon Dioxide 25 (22-32) mmol/L BUN 10 (7-17) mg/dL Creatinine 0.81 (0.52-1.04) mg/dL Estimated GFR > 60.0 (>60) mL/min BUN/Creatinine Ratio 12.3 (6-22) Glucose 108 H (70-100) mg/dL Lactate (0.7-2.1) mmol/L Calcium 10.1 (8.4-10.2) mg/dL Total Bilirubin 0.4 (0.2-1.3) mg/dL AST 22 (14-36) IU/L ALT 11 (<35) IU/L Alkaline Phosphatase 73 (38-126) U/L Total Protein 8.4 H (6.3-8.2) g/dL Albumin 4.8 (3.5-5.0) g/dL Globulin 3.6 (1.7-4.1) g/dL Albumin/Globulin Ratio 1.3 (1.0-2.8) Lipase 74 (23-300) U/L Procalcitonin (<0.5) ng/mL Urine Color Urine Appearance Urine pH (4.5-8.0) Ur Specific [place] (1.000-1.035) Urine Protein (Negative) Urine Glucose (UA) (Negative) g/dL Urine Ketones (NEGATIVE) Urine Occult Blood (Negative) Urine Nitrate (Negative) Urine Bilirubin (NEGATIVE) Urine Urobilinogen (0.2) E.U./dL Ur Leukocyte Esterase (NEGATIVE) Urine RBC (0-5/HPF) Urine WBC (0-5/HPF) Ur Squamous Epith Cells (0-5/HPF) Amorphous Sediment Urine Bacteria (None) Urine Mucus (Negative) Ur Culture Indicated? Urine Test (Negative) 02/06/21 02/06/21 02/06/21 Range/Units 14:14 14:14 14:14 WBC (4.5-11.0) X10^3/uL RBC (4.0-5.2) X10^6/uL Hgb (12.0-16.0) g/dL Hct (36-46) % MCV (80-100) fL MCH (26-34) PG MCHC (30-36) % RDW (11.6-14.8) % Plt Count (150-400) X10^3/uL Neut % (Auto) (50-75) % Lymph % (Auto) (25-40) % Chambers % (Auto) (3-14) % Eos % (Auto) (2-4) % Baso % (Auto) (0-2) % Neut # (Auto) (1895-6483) /uL Lymph # (Auto) (1759-6485) /uL Chambers # (Auto) (0-900) /uL Eos # (Auto) (0-450) /uL Baso # (Auto) (0-100) /uL PT (10.1-12.7) SECONDS INR (0.9-1.3) APTT (26.4-36.2) SECONDS D-Dimer 283 H (<230) ng/mL Sodium (137-145) mmol/L Potassium (3.4-5.1) mmol/L Chloride (98-107) mmol/L Carbon Dioxide (22-32) mmol/L BUN (7-17) mg/dL Creatinine (0.52-1.04) mg/dL Estimated GFR (>60) mL/min BUN/Creatinine Ratio (6-22) Glucose (70-100) mg/dL Lactate 1.0 (0.7-2.1) mmol/L Calcium (8.4-10.2) mg/dL Total Bilirubin (0.2-1.3) mg/dL AST (14-36) IU/L ALT (<35) IU/L Alkaline Phosphatase (38-126) U/L Total Protein (6.3-8.2) g/dL Albumin (3.5-5.0) g/dL Globulin (1.7-4.1) g/dL Albumin/Globulin Ratio (1.0-2.8) Lipase (23-300) U/L Procalcitonin < 0.03 (<0.5) ng/mL Urine Color Urine Appearance Urine pH (4.5-8.0) Ur Specific [place] (1.000-1.035) Urine Protein (Negative) Urine Glucose (UA) (Negative) g/dL Urine Ketones (NEGATIVE) Urine Occult Blood (Negative) Urine Nitrate (Negative) Urine Bilirubin (NEGATIVE) Urine Urobilinogen (0.2) E.U./dL Ur Leukocyte Esterase (NEGATIVE) Urine RBC (0-5/HPF) Urine WBC (0-5/HPF) Ur Squamous Epith Cells (0-5/HPF) Amorphous Sediment Urine Bacteria (None) Urine Mucus (Negative) Ur Culture Indicated? Urine Test (Negative) 02/06/21 02/06/21 Range/Units 14:50 14:50 WBC (4.5-11.0) X10^3/uL RBC (4.0-5.2) X10^6/uL Hgb (12.0-16.0) g/dL Hct (36-46) % MCV (80-100) fL MCH (26-34) PG MCHC (30-36) % RDW (11.6-14.8) % Plt Count (150-400) X10^3/uL Neut % (Auto) (50-75) % Lymph % (Auto) (25-40) % Chambers % (Auto) (3-14) % Eos % (Auto) (2-4) % Baso % (Auto) (0-2) % Neut # (Auto) (4850-7484) /uL Lymph # (Auto) (9388-7178) /uL Chambers # (Auto) (0-900) /uL Eos # (Auto) (0-450) /uL Baso # (Auto) (0-100) /uL PT (10.1-12.7) SECONDS INR (0.9-1.3) APTT (26.4-36.2) SECONDS D-Dimer (<230) ng/mL Sodium (137-145) mmol/L Potassium (3.4-5.1) mmol/L Chloride (98-107) mmol/L Carbon Dioxide (22-32) mmol/L BUN (7-17) mg/dL Creatinine (0.52-1.04) mg/dL Estimated GFR (>60) mL/min BUN/Creatinine Ratio (6-22) Glucose (70-100) mg/dL Lactate (0.7-2.1) mmol/L Calcium (8.4-10.2) mg/dL Total Bilirubin (0.2-1.3) mg/dL AST (14-36) IU/L ALT (<35) IU/L Alkaline Phosphatase (38-126) U/L Total Protein (6.3-8.2) g/dL Albumin (3.5-5.0) g/dL Globulin (1.7-4.1) g/dL Albumin/Globulin Ratio (1.0-2.8) Lipase (23-300) U/L Procalcitonin (<0.5) ng/mL Urine Color Red Urine Appearance Cloudy Urine pH 7.5 (4.5-8.0) Ur Specific [place] 1.010 (1.000-1.035) Urine Protein 2+ H (Negative) Urine Glucose (UA) Negative (Negative) g/dL Urine Ketones 1+ H (NEGATIVE) Urine Occult Blood 3+ H (Negative) Urine Nitrate Positive H (Negative) Urine Bilirubin Negative (NEGATIVE) Urine Urobilinogen 0.2 (0.2) E.U./dL Ur Leukocyte Esterase 2+ H (NEGATIVE) Urine RBC 30-100/hpf H (0-5/HPF) Urine WBC 30-100/hpf H (0-5/HPF) Ur Squamous Epith Cells 1-5 /hpf (0-5/HPF) Amorphous Sediment 2+ Urine Bacteria Many (>30) H (None) Urine Mucus 1+ H (Negative) Ur Culture Indicated? Specimen cultured Urine Test Negative (Negative) MDM Narrative Medical decision making narrative: The patient is a 35-year-old female who presents with a chief complaint of right-sided flank and abdominal pain that started this morning. She was recently ?flushing? urinary tract infection with no antibiotic treatment that started on Saturday. She has leukocytosis to almost 14, no elevated lactate and procalcitonin. Urine is very infected with nitrates leukocyte esterase blood. Primary concern is for pyelonephritis, however CT abdomen pelvis taken to rule out other acute etiology such as appendicitis/stone etcetera. This came back negative for any acute finding other than mild enhancement of the right ureter and right renal pelvis. Will initiate treatment for pyelonephritis with ciprofloxacin. Pain control is achieved in the emergency department, patient discharged on tramadol per her request as she gets to nauseous with other narcotics. Toradol and ondansetron also given. Discussed follow-up with primary care in the next few days. Discussed at length the possibility of tendon issues and monitoring for that with her antibiotics as well as taking probiotic or yogurt with antibiotics. Discussed at length very strict emergency department return precautions including abdominal pain with fever, inability keep down fluids etcetera. Patient tolerates p.o. fluids and antibiotics prior to discharge. Patient has no questions or concerns upon discharge states understanding of return precautions as well as follow-up care. <Denice Zaldivar, DO - Last Filed: 02/07/21 07:46> Lab Data Labs: Lab Results 02/06/21 02/06/21 02/06/21 Range/Units 14:14 14:14 14:14 WBC 13.6 H (4.5-11.0) X10^3/uL RBC 4.40 (4.0-5.2) X10^6/uL Hgb 13.7 (12.0-16.0) g/dL Hct 40.6 (36-46) % MCV 92.3 (80-100) fL MCH 31.2 (26-34) PG MCHC 33.8 (30-36) % RDW 13.5 (11.6-14.8) % Plt Count 234 (150-400) X10^3/uL Neut % (Auto) 88.0 H (50-75) % Lymph % (Auto) 6.4 L (25-40) % Chambers % (Auto) 5.2 (3-14) % Eos % (Auto) 0.1 L (2-4) % Baso % (Auto) 0.3 (0-2) % Neut # (Auto) 06923 H (0183-1315) /uL Lymph # (Auto) 900 L (2438-4670) /uL Chambers # (Auto) 700 (0-900) /uL Eos # (Auto) 0 (0-450) /uL Baso # (Auto) 0 (0-100) /uL PT 11.9 (10.1-12.7) SECONDS INR 1.1 (0.9-1.3) APTT 27 (26.4-36.2) SECONDS D-Dimer (<230) ng/mL Sodium 135 L (137-145) mmol/L Potassium 4.0 (3.4-5.1) mmol/L Chloride 100 (98-107) mmol/L Carbon Dioxide 25 (22-32) mmol/L BUN 10 (7-17) mg/dL Creatinine 0.81 (0.52-1.04) mg/dL Estimated GFR > 60.0 (>60) mL/min BUN/Creatinine Ratio 12.3 (6-22) Glucose 108 H (70-100) mg/dL Lactate (0.7-2.1) mmol/L Calcium 10.1 (8.4-10.2) mg/dL Total Bilirubin 0.4 (0.2-1.3) mg/dL AST 22 (14-36) IU/L ALT 11 (<35) IU/L Alkaline Phosphatase 73 (38-126) U/L Total Protein 8.4 H (6.3-8.2) g/dL Albumin 4.8 (3.5-5.0) g/dL Globulin 3.6 (1.7-4.1) g/dL Albumin/Globulin Ratio 1.3 (1.0-2.8) Lipase 74 (23-300) U/L Procalcitonin (<0.5) ng/mL Urine Color Urine Appearance Urine pH (4.5-8.0) Ur Specific [place] (1.000-1.035) Urine Protein (Negative) Urine Glucose (UA) (Negative) g/dL Urine Ketones (NEGATIVE) Urine Occult Blood (Negative) Urine Nitrate (Negative) Urine Bilirubin (NEGATIVE) Urine Urobilinogen (0.2) E.U./dL Ur Leukocyte Esterase (NEGATIVE) Urine RBC (0-5/HPF) Urine WBC (0-5/HPF) Ur Squamous Epith Cells (0-5/HPF) Amorphous Sediment Urine Bacteria (None) Urine Mucus (Negative) Ur Culture Indicated? Urine Test (Negative) 02/06/21 02/06/21 02/06/21 Range/Units 14:14 14:14 14:14 WBC (4.5-11.0) X10^3/uL RBC (4.0-5.2) X10^6/uL Hgb (12.0-16.0) g/dL Hct (36-46) % MCV (80-100) fL MCH (26-34) PG MCHC (30-36) % RDW (11.6-14.8) % Plt Count (150-400) X10^3/uL Neut % (Auto) (50-75) % Lymph % (Auto) (25-40) % Chambers % (Auto) (3-14) % Eos % (Auto) (2-4) % Baso % (Auto) (0-2) % Neut # (Auto) (1305-1940) /uL Lymph # (Auto) (9058-3537) /uL Chambers # (Auto) (0-900) /uL Eos # (Auto) (0-450) /uL Baso # (Auto) (0-100) /uL PT (10.1-12.7) SECONDS INR (0.9-1.3) APTT (26.4-36.2) SECONDS D-Dimer 283 H (<230) ng/mL Sodium (137-145) mmol/L Potassium (3.4-5.1) mmol/L Chloride (98-107) mmol/L Carbon Dioxide (22-32) mmol/L BUN (7-17) mg/dL Creatinine (0.52-1.04) mg/dL Estimated GFR (>60) mL/min BUN/Creatinine Ratio (6-22) Glucose (70-100) mg/dL Lactate 1.0 (0.7-2.1) mmol/L Calcium (8.4-10.2) mg/dL Total Bilirubin (0.2-1.3) mg/dL AST (14-36) IU/L ALT (<35) IU/L Alkaline Phosphatase (38-126) U/L Total Protein (6.3-8.2) g/dL Albumin (3.5-5.0) g/dL Globulin (1.7-4.1) g/dL Albumin/Globulin Ratio (1.0-2.8) Lipase (23-300) U/L Procalcitonin < 0.03 (<0.5) ng/mL Urine Color Urine Appearance Urine pH (4.5-8.0) Ur Specific [place] (1.000-1.035) Urine Protein (Negative) Urine Glucose (UA) (Negative) g/dL Urine Ketones (NEGATIVE) Urine Occult Blood (Negative) Urine Nitrate (Negative) Urine Bilirubin (NEGATIVE) Urine Urobilinogen (0.2) E.U./dL Ur Leukocyte Esterase (NEGATIVE) Urine RBC (0-5/HPF) Urine WBC (0-5/HPF) Ur Squamous Epith Cells (0-5/HPF) Amorphous Sediment Urine Bacteria (None) Urine Mucus (Negative) Ur Culture Indicated? Urine Test (Negative) 02/06/21 02/06/21 Range/Units 14:50 14:50 WBC (4.5-11.0) X10^3/uL RBC (4.0-5.2) X10^6/uL Hgb (12.0-16.0) g/dL Hct (36-46) % MCV (80-100) fL MCH (26-34) PG MCHC (30-36) % RDW (11.6-14.8) % Plt Count (150-400) X10^3/uL Neut % (Auto) (50-75) % Lymph % (Auto) (25-40) % Chambers % (Auto) (3-14) % Eos % (Auto) (2-4) % Baso % (Auto) (0-2) % Neut # (Auto) (9211-9842) /uL Lymph # (Auto) (9719-5450) /uL Chambers # (Auto) (0-900) /uL Eos # (Auto) (0-450) /uL Baso # (Auto) (0-100) /uL PT (10.1-12.7) SECONDS INR (0.9-1.3) APTT (26.4-36.2) SECONDS D-Dimer (<230) ng/mL Sodium (137-145) mmol/L Potassium (3.4-5.1) mmol/L Chloride (98-107) mmol/L Carbon Dioxide (22-32) mmol/L BUN (7-17) mg/dL Creatinine (0.52-1.04) mg/dL Estimated GFR (>60) mL/min BUN/Creatinine Ratio (6-22) Glucose (70-100) mg/dL Lactate (0.7-2.1) mmol/L Calcium (8.4-10.2) mg/dL Total Bilirubin (0.2-1.3) mg/dL AST (14-36) IU/L ALT (<35) IU/L Alkaline Phosphatase (38-126) U/L Total Protein (6.3-8.2) g/dL Albumin (3.5-5.0) g/dL Globulin (1.7-4.1) g/dL Albumin/Globulin Ratio (1.0-2.8) Lipase (23-300) U/L Procalcitonin (<0.5) ng/mL Urine Color Red Urine Appearance Cloudy Urine pH 7.5 (4.5-8.0) Ur Specific [place] 1.010 (1.000-1.035) Urine Protein 2+ H (Negative) Urine Glucose (UA) Negative (Negative) g/dL Urine Ketones 1+ H (NEGATIVE) Urine Occult Blood 3+ H (Negative) Urine Nitrate Positive H (Negative) Urine Bilirubin Negative (NEGATIVE) Urine Urobilinogen 0.2 (0.2) E.U./dL Ur Leukocyte Esterase 2+ H (NEGATIVE) Urine RBC 30-100/hpf H (0-5/HPF) Urine WBC 30-100/hpf H (0-5/HPF) Ur Squamous Epith Cells 1-5 /hpf (0-5/HPF) Amorphous Sediment 2+ Urine Bacteria Many (>30) H (None) Urine Mucus 1+ H (Negative) Ur Culture Indicated? Specimen cultured Urine Test Negative (Negative) Discharge Plan Departure Patient Disposition: Home Clinical Impression: Pyelonephritis Instructions: DI for Kidney Infection Activity Restrictions/Additional Instructions: Thank you for trusting us with your care today As discussed, your exam and lab work is concerning for a kidney infection. I have placed you in an antibiotic called Cipro. Please start the prescription tomorrow as he already had a dose in the emergency department. As discussed please monitor for tendon pain with this antibiotic. Please take with probiotic or yogurt to help prevent antibiotic related side effects. As discussed if he had any acute concerns such as high fevers, inability keep down fluids etcetera please come back to the emergency department. I also sent in ketorolac or Toradol for pain, tramadol for pain and ondansetron for nausea I have given you a prescription of Toradol. This is an NSAID. Do not combine it with other NSAIDs such as Aleve or ibuprofen. I suggest taking it with some food, as it can irritate your stomach. You have been prescribed narcotic medications. While on these medications you cannot drive or operate heavy machinery. Additionally you cannot sign legal documents or perform any duties such as this. 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 Please follow-up with primary care provider in the next 48-72 hours. As discussed, please come back to the emergency department for any acute concerns Prescriptions: New ciprofloxacin HCl 500 mg tablet 500 mg PO BID Qty: 14 RF: 0 tramadol 50 mg tablet 50 mg PO Q6H PRN (Reason: pain) Qty: 10 RF: 0 ketorolac 10 mg tablet 10 mg PO TID PRN (Reason: pain) Qty: 14 RF: 0 ondansetron 4 mg tablet,disintegrating 4 mg PO Q6H PRN (Reason: nausea and vomiting) Qty: 20 RF: 0 No Action tramadol 50 mg tablet 50 mg PO Q6H PRN (Reason: pain) Qty: 14 RF: 0 cephalexin 500 mg tablet 500 mg PO QID Qty: 28 RF: 0 sulfamethoxazole-trimethoprim [Bactrim DS] 800-160 mg tablet 1 tab PO BID Qty: 14 RF: 0 melatonin 10 mg Tablet 5 mg PO BEDTIME PRN (Reason: Insomnia) RF: 0 Referrals: lAex Nunes MD [Primary Care Provider] - <Denice Zaldivar DO - Last Filed: 02/07/21 07:46> [facility] Attending [place] Attestation: I was immediately available in the department for consultation. Documentation has been reviewed. I agree with assessment and plan.
--- NOTE | 2021-02-06 17:01 | PC.NURSE ---
pt states pain is on rt side, pointing to flank area. pt states pain is constant and sometimes a sharp pain comes through the rt side of abd.
[2021-02-06] MEDS: KETOROLAC 60 MG/2 ML VIAL 30 MG IV (17:28)
[2021-02-06] MEDS: CIPROFLOXACIN 500 MG TABLET PO (18:10)
[2021-02-06] MEDS: TRAMADOL 50 MG TABLET PO (18:10)
== END 2021-02-06 19:14 | disposition home or self-care (01) ==
PROVIDERS: Emergency Medicine; Emergency Provider Nurse Practitioner Family; PCP General Practice
DX: N12 Tubulo-interstitial nephritis, not specified as acute or chronic (principal); R30.0 Dysuria; R11.0 Nausea
CPT/HCPCS: 36415; 74177; 80053; 81001; 81025; 83605; 83690; 84145; 85025; 85379; 85610; 85730; 87077; 87086; 87186; 93005; 93010; 96361; 96374; 96375; 99284; J1170; J1885; J2270; J2405; Q9967

== ENCOUNTER 2021-08-31 19:57 | Emergency (ER) | payer OTHER, SELFPAY ==
[2021-08-31 20:07] VITALS: BP 114/83; PULSE 107; RESP 20; TEMP 36.6; O2SAT 98
--- NOTE | 2021-08-31 22:29 | PC.NURSE ---
at 2200 we could not again locate her in waiting room.A couple of attempts prior to this had been made.
== END 2021-08-31 22:00 | disposition left against medical advice (07) ==
PROVIDERS: Emergency Provider Emergency Medicine; PCP General Practice
DX: A49.02 Methicillin resistant Staphylococcus aureus infection, unspecified site (principal)
CPT/HCPCS: 99281

== ENCOUNTER 2023-11-14 08:40 | Emergency (ER) | payer OTHER, SELFPAY ==
[2023-11-14 08:51] VITALS: BP 137/90; PULSE 70; RESP 16; TEMP 36.9; O2SAT 100; BMI 26.2
[2023-11-14 09:07] VITALS: PULSE 76; RESP 19; O2SAT 100
--- NOTE | 2023-11-14 09:09 | ED.CHESTPAIN ---
HPI - Chest Pain General Chief Complaint: Upper Respiratory Symptoms Stated Complaint: chest pain, rt arm pain, cough Time Seen by Provider: 11/14/23 08:50 Source: patient Mode of arrival: Ambulatory Limitations: no limitations History of Present Illness HPI narrative: This is a 38-year-old female who is previously healthy. She has had viral URI symptoms with a cough and a sore throat and myalgias for a week to 10 days. She says a couple of days ago she woke up with some chest heaviness that resolved as soon as she sat up. He has also had some central chest pain with the cough. She has not presently having chest pain he has not had nausea or vomiting she has not short of breath. Patient has no history of cardiac disease no history of hypertension elevated cholesterol or diabetes, there is no family history of early cardiac disease there is no family history of abnormal clotting she herself is not taking oral contraceptives she does not smoke she is status post tubal ligation. Patient tells me that she was at urgent care yesterday, tried to get an appointment with her primary care provider they told her to come to the emergency department because she had told them of chest pain Related Data Home Medications Medication Instructions Recorded Confirmed promethazine 25 mg tablet mg PO 11/13/23 11/13/23 Allergies Allergy/AdvReac Type Severity Reaction Status Date / Time No Known Drug Allergies Allergy Verified 11/14/23 08:57 Patient History Medical History (Updated 11/14/23 @ 09:09 by Bob Castano MD) PTSD (post-traumatic stress disorder) Recurrent abdominal pain Surgical History Previous section Social History household members: spouse and children Smoking Status: Never smoker alcohol intake: former Smoking Status: Never smoker alcohol intake frequency: 0-2 drinks per day Substance Use Type: marijuana Exam Narrative Exam Narrative: GEN: AOx3 and in mild distress EYES: Pupils are equal, round, and reactive to light and accommodation. Extraoccular muscles are intact bilaterally. There is no subconjunctival hemorrhage or exudate. CHEST: Lungs are clear to auscultation bilaterally and free of wheezes, rales, or rhonchi. Heart rate is regular rhythm, there are no murmurs, clicks, rubs, or gallops. There is no chest wall tenderness. ABD: Abdomen is soft and nontender. There is no guarding or rebound. Bowel sounds are normal in all 4 quadrants. There is no mass or organomegaly. EXT: Full painless ROM of all extremities with no loss of sensation or strength. SKIN: Warm, pink, and dry. No erythema or rash Initial Vital Signs Initial Vital Signs: Vital Signs Temperature 98.4 F 11/14/23 08:51 Pulse Rate 70 11/14/23 08:51 Respiratory Rate 16 11/14/23 08:51 Blood Pressure 137/90 11/14/23 08:51 Pulse Oximetry 100 11/14/23 08:51 Oxygen Delivery Method Room Air 11/14/23 08:51 Cardio Other: Regular rhythm rate no murmur rub or gallop Extrem Other: No calf tenderness or cords Course Orders Ordered: ED Orders 11/14/23 09:07 EKG-12 Lead Stat Vital Signs Vital signs: Vital Signs - 8 hr 11/14/23 08:51 Temperature 98.4 F Pulse Rate 70 Respiratory Rate 16 Blood Pressure 137/90 Pulse Oximetry 100 Oxygen Delivery Method Room Air MDM - Chest Pain ECG Data Interpretation: EKG shows normal sinus rhythm at [address] segment changes no evidence of previous infarction axis and intervals are normal this is a normal EKG MDM Narrative Medical decision making narrative: This is a 38-year-old female who had some chest heaviness the couple of days ago and is having central chest pain with the cough. She has other your eye symptoms. She has no cardiac risk factors and no risk factors for DVT. Her EKG is normal. We discussed further workup including labs and chest x-ray, I did share with her my impression that it was very unlikely that she was having an acute cardiac event or pulmonary embolism. The patient preferred to forego further workup at this time. We discussed symptomatic treatment and I recommended primary care follow up, indications for return to emergency department were reviewed. Discharge Plan Departure Patient Disposition: Home Clinical Impression: Upper respiratory infection Qualifiers: URI type: unspecified viral URI Qualified Code(s): J06.9 - Acute upper respiratory infection, unspecified Chest pain Qualifiers: Chest pain type: unspecified Qualified Code(s): R07.9 - Chest pain, unspecified Activity Restrictions/Additional Instructions: Emergency department evaluation today is reassuring. Based on your history examined EKG, I think it very unlikely that you are having an acute medical problem requiring further workup. I think it is safe to go home, you can use Tylenol and or ibuprofen as needed for pain rest and get adequate fluids. It is common for viral respiratory infections to cause a cough that will last for a couple of weeks or more. If you are having increasing chest pain worsening shortness of breath or other acute symptoms recheck in the emergency department. Follow up soon with her primary care provider. Prescriptions: No Action promethazine 25 mg tablet PO Referrals: Alex Nunes MD [Primary Care Provider] - Stand Alone Forms: Patient Portal/API
[2023-11-14 09:30] VITALS: PULSE 73; RESP 12; O2SAT 100
== END 2023-11-14 09:35 | disposition home or self-care (01) ==
PROVIDERS: Emergency Provider Emergency Medicine; PCP General Practice
DX: J06.9 Acute upper respiratory infection, unspecified (principal); R07.9 Chest pain, unspecified
CPT/HCPCS: 93005; 99281; 99283

== ENCOUNTER 2024-06-26 19:33 | Emergency (ER) | payer OTHER, SELFPAY ==
[2024-06-26 19:36] VITALS: BP 142/82; PULSE 86; RESP 16; TEMP 36.9; O2SAT 100; BMI 26.0
--- NOTE | 2024-06-26 19:50 | DI.US.S_ITS ---
PROCEDURE: US PELVIC COMPLETE INDICATIONS: pelvic pain, h/o ovarian cysts.... TECHNIQUE: Real-time scanning was performed of the pelvic organs, with image documentation. Additional endovaginal scanning was necessary due to incomplete visualization of the adnexal and endometrial structures by transabdominal scanning. COMPARISON: [facility], CT, CT ABDOMEN PELVIS W CON, 02/06/2021, 16:45. FINDINGS: Uterus: Uterus is anteverted and normal in size at 10.4 x 5.2 x 4.9 cm. The myometrium is homogeneous. The endometrium measures 7 mm combined thickness. Mid/lower uterine segment anterior intramural fibroid measuring 1.6 x 1.6 x 1.4 cm. Fundal intramural fibroid measuring 2.1 x 1.8 x 1.7 cm. Small nabothian cysts. Ovaries: The right ovary measures 3 x 2.2 x 2 cm, with a calculated ovarian volume of 7 cc. The left ovary measures 2.6 x 2.5 x 1.7 cm, with a calculated ovarian volume of 6 cc. The ovaries have a normal sonographic appearance. Less than 12 follicles can be seen in each ovary. No adnexal masses are seen. Other: No pathologic free abdominal or pelvic fluid. IMPRESSION: 1. No significant ovarian cysts. 2. Endometrium measures 7 mm. 3. Small uterine fibroids. We strive to produce accurate, complete, and clear reports of imaging services. To assist us in improving patient care, this report was composed using standard report templates and voice recognition software. Therefore, it may contain abnormal punctuation, insertions and/or omissions. Occasional wrong-word or sound-alike substitutions may occur. Though we review the report and make efforts to correct it, we do recommend that the report be read carefully in proper context to recognize any text inaccuracies. Dictated by: Jae James M.D. on 06/26/2024 at 21:44 Approved by: Jae James M.D. on 06/26/2024 at 21:48
[2024-06-26] MEDS: KETOROLAC 30 MG/ML VIAL 15 MG IV (20:15)
[2024-06-26 20:43] LABS: Add Manual Diff / Slide Review NO; Basophils Absolute Auto 100 /uL (0-100); Basophils Percent Auto 1.2 % (0-2); Eosinophils Absolute Auto 100 /uL (0-450); Eosinophils Percent Auto 1.9 % (2-4); Hematocrit 38.6 % (36-46); Hemoglobin 12.8 g/dL (12.0-16.0); Lymphocytes Absolute Auto 2400 /uL (1100-4500); Lymphocytes Percent Auto 37.1 % (25-40); Mean Corpuscular HGB Conc 33.1 % (30-36); Mean Corpuscular Hemoglobin 29.8 PG (26-34); Monocytes Absolute Auto 500 /uL (0-900); Monocytes Percent Auto 7.5 % (3-14); Neutrophils Absolute Auto 3400 /uL (1500-7000); Neutrophils Percent Auto 52.3 % (50-75); Platelet Count 257 X10^3/uL (150-400); Red Blood Cell Count 4.29 X10^6/uL (4.0-5.2); Red Cell Distribution Width 13.6 % (11.6-14.8); White Blood Cell Count 6.6 X10^3/uL (4.5-11.0)
[2024-06-26 20:51] LABS: Bacteria Urine Occasional (0-1); RBC Urine None Seen (0-5/HPF); Squamous Epithelial Cell Urine 0-1 /HPF (0-5/HPF); Urine Volume 10mL (spun); WBC Urine None Seen (0-5/HPF)
[2024-06-26 20:51] LABS: Alanine Aminotransferase 14 IU/L (<35); Albumin 4.5 g/dL (3.5-5.0); Albumin Globulin Ratio 1.3 (1.0-2.8); Alkaline Phosphatase 62 U/L (38-126); Aspartate Aminotransferase 24 IU/L (14-36); BUN Creatinine Ratio 9.7 (6-22); Bilirubin Total 0.4 mg/dL (0.2-1.3); Blood Urea Nitrogen 9 mg/dL (7-17); Calcium 9.8 mg/dL (8.4-10.2); Carbon Dioxide 26 mmol/L (22-32); Chloride 103 mmol/L (98-107); Estimated Glomerular Filt Rate > 60 mL/min (>60); Globulin 3.6 g/dL (1.7-4.1); Glucose 91 mg/dL (70-100); HEMOLYSIS < 15 (0-50); Lipase 162 U/L (23-300); Potassium 3.8 mmol/L (3.4-5.1); Sodium 137 mmol/L (137-145); Total Protein 8.1 g/dL (6.3-8.2)
[2024-06-26 20:52] LABS: Culture Indicated Urine Cult Not Indicated
--- NOTE | 2024-06-26 21:01 | ED.FEMALEGU ---
HPI - Female Genitourinary General Chief complaint: Vaginal Bleeding Stated complaint: hx ovarian cysts, pain Time Seen by Provider: 06/26/24 20:53 Source: patient Mode of arrival: Ambulatory History of Present Illness HPI Narrative: 38-year-old female with history of ovarian cyst, with low bilateral abdominal pelvic pain, feels similar to her previous ovarian cyst related pain. She denies fevers or chills. No nausea vomiting or diarrhea. She is also late on her period, was advised by PCP to come in to the emergency department for evaluation. She does not believe herself to be . She denies having pain usually on her periods, no previous diagnosis of dysmenorrhea, no previous diagnosis of endometriosis. She has no dysuria or frequency of urination. She has no cough or shortness of breath. No injury, trauma, or new activities. Related Data Home Medications Medication Instructions Recorded Confirmed promethazine 25 mg tablet mg PO 11/13/23 11/13/23 Allergies Allergy/AdvReac Type Severity Reaction Status Date / Time No Known Drug Allergies Allergy Verified 11/14/23 08:57 Review of Systems Review of Systems Narrative: see HPI Patient History Medical History (Updated 06/26/24 @ 22:21 by Amandeep Box MD) PTSD (post-traumatic stress disorder) Recurrent abdominal pain Surgical History Previous section alcohol intake frequency: 0-2 drinks per day Substance Use Type: marijuana Exam Narrative Exam Narrative: GENERAL: Well-developed patient, in mild distress. HEAD: Atraumatic. Normocephalic. EYES: Pupils equal round and reactive. Extraocular motions intact. No scleral icterus. No injection or drainage. ENT: Nose without bleeding, purulent drainage. Throat without erythema, tonsillar hypertrophy or exudate. Airway patent. NECK: Trachea midline. Non tender CARDIOVASCULAR: Regular rate and rhythm without murmurs, gallops, or rubs. RESPIRATORY: Clear to auscultation. Breath sounds equal bilaterally. No wheezes, rales, or rhonchi. GASTROINTESTINAL: Abdomen soft, non-tender, nondistended. EXTREMITIES: No edema or joint tenderness. BACK: Nontender without deformity or crepitance. No flank tenderness. NEURO: AOx3. SKIN: No rash or erythema of visible areas Initial Vital Signs Initial Vital Signs: Vital Signs Temperature 98.5 F 06/26/24 19:36 Pulse Rate 86 06/26/24 19:36 Respiratory Rate 16 06/26/24 19:36 Blood Pressure 142/82 H 06/26/24 19:36 Pulse Oximetry 100 06/26/24 19:36 Oxygen Delivery Method Room Air 06/26/24 19:36 Course Orders Ordered: ED Orders 06/26/24 19:50 US pelvic complete Stat 06/26/24 19:51 Urine Culture Stat Urine Microscopic Stat 06/26/24 20:12 Complete Blood Count AUTO DIFF Stat Comprehensive Metabolic Panel Stat Lipase Stat Discontinued Medications Ketorolac Tromethamine (Ketorolac 30 Mg/Ml Vial) 15 mg IV NOW ONE Stop: 06/26/24 19:53 Last Admin: 06/26/24 20:15 Dose: 15 mg Documented By: ABRAN Ondansetron HCl (Ondansetron 4 Mg/2 Ml Inj) 4 mg IV NOW PRN PRN Reason: Nausea And Vomiting Ondansetron HCl (Ondansetron 4 Mg Odt) 4 mg PO NOW PRN PRN Reason: Nausea And Vomiting Vital Signs Vital signs: Vital Signs - 8 hr 06/26/24 19:36 06/26/24 22:10 Temperature 98.5 F Pulse Rate 86 77 Respiratory Rate 16 16 Blood Pressure 142/82 H 126/79 Pulse Oximetry 100 97 Oxygen Delivery Method Room Air Room Air MDM - Female Genitourinary Lab Data Attestation: I reviewed the patient's lab results. 06/26/24 20:12 06/26/24 20:12 Labs: Lab Results 06/26/24 06/26/24 Range/Units 19:51 20:12 WBC 6.6 (4.5-11.0) X10^3/uL RBC 4.29 (4.0-5.2) X10^6/uL Hgb 12.8 (12.0-16.0) g/dL Hct 38.6 (36-46) % MCV 90.0 (80-100) fL MCH 29.8 (26-34) PG MCHC 33.1 (30-36) % RDW 13.6 (11.6-14.8) % Plt Count 257 (150-400) X10^3/uL Neut % (Auto) 52.3 (50-75) % Lymph % (Auto) 37.1 (25-40) % Isabella % (Auto) 7.5 (3-14) % Eos % (Auto) 1.9 L (2-4) % Baso % (Auto) 1.2 (0-2) % Neut # (Auto) 3400 (8108-5485) /uL Lymph # (Auto) 2400 (9856-2320) /uL Isabella # (Auto) 500 (0-900) /uL Eos # (Auto) 100 (0-450) /uL Baso # (Auto) 100 (0-100) /uL Sodium 137 (137-145) mmol/L Potassium 3.8 (3.4-5.1) mmol/L Chloride 103 (98-107) mmol/L Carbon Dioxide 26 (22-32) mmol/L BUN 9 (7-17) mg/dL Creatinine 0.93 (0.52-1.04) mg/dL Estimated GFR > 60 (>60) mL/min BUN/Creatinine Ratio 9.7 (6-22) Glucose 91 (70-100) mg/dL Calcium 9.8 (8.4-10.2) mg/dL Total Bilirubin 0.4 (0.2-1.3) mg/dL AST 24 (14-36) IU/L ALT 14 (<35) IU/L Alkaline Phosphatase 62 (38-126) U/L Total Protein 8.1 (6.3-8.2) g/dL Albumin 4.5 (3.5-5.0) g/dL Globulin 3.6 (1.7-4.1) g/dL Albumin/Globulin Ratio 1.3 (1.0-2.8) Lipase 162 (23-300) U/L Urine RBC None seen (0-5/HPF) Urine WBC None seen (0-5/HPF) Ur Squamous Epith Cells 0-1 /hpf (0-5/HPF) Urine Bacteria Occasional (0-1) (None) Ur Culture Indicated? Cult not indicated Vol Urine Centrifuged 10ml (spun) Point of Care Testing Test Results Negative Urine Dip Bedside Urine Glucose Negative Bedside Urine Bilirubin - Negative Bedside Urine Ketone - Negative Urine Specific [place] 1.005 Bedside Urine Occult Blood +++ Bedside Urine pH 5.5 Bedside Urine Protein - Negative Bedside Urine Urobilinogen - Negative Bedside Urine Nitrite - Negative Bedside Urine Leukocytes - Negative Esterase Imaging Data Pelvic ultrasound: Radiologist's Impression: [address] [address] Ultrasound Report Signed Patient: Patrice Jessica MR#: [id number] : 1985 Acct:[id number] Age/Sex: 38 / F Date of Service: 06/26/24 Loc: ED Accession Number: [id number] Procedure: US pelvic complete Ordering Provider: Amandeep Box MD PROCEDURE: US PELVIC COMPLETE INDICATIONS: pelvic pain, h/o ovarian cysts.... TECHNIQUE: Real-time scanning was performed of the pelvic organs, with image documentation. Additional endovaginal scanning was necessary due to incomplete visualization of the adnexal and endometrial structures by transabdominal scanning. COMPARISON: [facility], CT, CT ABDOMEN PELVIS W CON, 02/06/2021, 16:45. FINDINGS: Uterus: Uterus is anteverted and normal in size at 10.4 x 5.2 x 4.9 cm. The myometrium is homogeneous. The endometrium measures 7 mm combined thickness. Mid/lower uterine segment anterior intramural fibroid measuring 1.6 x 1.6 x 1.4 cm. Fundal intramural fibroid measuring 2.1 x 1.8 x 1.7 cm. Small nabothian cysts. Ovaries: The right ovary measures 3 x 2.2 x 2 cm, with a calculated ovarian volume of 7 cc. The left ovary measures 2.6 x 2.5 x 1.7 cm, with a calculated ovarian volume of 6 cc. The ovaries have a normal sonographic appearance. Less than 12 follicles can be seen in each ovary. No adnexal masses are seen. Other: No pathologic free abdominal or pelvic fluid. IMPRESSION: 1. No significant ovarian cysts. 2. Endometrium measures 7 mm. 3. Small uterine fibroids. We strive to produce accurate, complete, and clear reports of imaging services. To assist us in improving patient care, this report was composed using standard report templates and voice recognition software. Therefore, it may contain abnormal punctuation, insertions and/or omissions. Occasional wrong-word or sound-alike substitutions may occur. Though we review the report and make efforts to correct it, we do recommend that the report be read carefully in proper context to recognize any text inaccuracies. Dictated by: Jae James M.D. on 06/26/2024 at 21:44 Approved by: Jae James M.D. on 06/26/2024 at 21:48 [facility] Narrative Medical decision making narrative: 38-year-old female with lower pelvic pain, irregular bleeding longer than usual, no known , here for further evaluation. Afebrile, sirs screen negative. No tenderness on abdominal examination. test today was negative. Hemoglobin normal, white blood cell count not elevated. Ultrasound pelvis showed small uterine fibroids, endometrial thickness 7 mm, no obvious ovarian cyst, no problems with blood flow to either ovary, no ovarian masses or enlargement, nor PID changes. We discussed pelvic examination and infections screening, patient declines any further evaluation at this time. She felt better after IV Toradol, has stomach problems, avoid NSAIDs otherwise orally for now, consider Tylenol as needed for discomfort. Consider dysmenorrhea, although she does not usually have painful periods. Consider endometriosis, though this is no history of similar problems with periods in the past. Uterine fibroids can be painful but usually at larger size and associated with degeneration, small fibroids seem less likely to be cause of her discomfort, but were present, patient informed, follow up further as an outpatient. Follow up with PCP advised early next week, gynecology referral as needed, contact information for Dr. Lyn provided. Return precautions discussed Discharge Plan Departure Patient Disposition: Home Clinical Impression: Pelvic pain, Uterine fibroid, Dysmenorrhea Instructions: DI for Dysmenorrhea Activity Restrictions/Additional Instructions: Pelvic pain, some irregular vaginal bleeding, test negative today, blood tests unremarkable. Improvement of symptoms with IV Toradol, although generally you avoid anti-inflammatory medications due to stomach lining problems. Consider taking a week or so of Pepcid or omeprazole antacid given your exposure to IV Toradol today. Take Tylenol as needed for discomfort. Pelvic ultrasound was performed today, showed 7 mm thickness endometrial uterine lining, small fibroid changes that might not necessarily be causing any pain but should be followed up, no ovarian cysts at this time, no obvious infectious changes at this time. Consider endometriosis, though you do not have any history of this disorder, though you had some discomfort in the setting of vaginal bleeding at this time. Consider dysmenorrhea, painful periods, although you do not usually have this, and may not happen necessarily in the future. We discussed additional advanced imaging like CT scan abdomen and pelvis, declined for now. We discussed further evaluation such as pelvic examination and screening for infectious causes of symptoms, you declined this for now. Consider follow up with Gynecology, gynecology on-call contact information Dr. Lyn provided, though you might require referral from your regular provider. Consider taking Tylenol as needed for discomfort. Follow up with your regular provider early next week for arrangement of further follow up as needed. Return earlier to this/nearest emergency department for any change worsening symptoms or any concerns prior Prescriptions: No Action promethazine 25 mg tablet PO Referrals: Alex Nunes MD [Primary Care Provider] - Caroline Lyn MD [Physician] - Stand Alone Forms: Patient Portal/API
[2024-06-26 22:10] VITALS: BP 126/79; PULSE 77; RESP 16; O2SAT 97
== END 2024-06-26 22:30 | disposition home or self-care (01) ==
PROVIDERS: Emergency Provider Emergency Medicine; PCP General Practice
DX: R10.2 Pelvic and perineal pain (principal); D25.1 Intramural leiomyoma of uterus; N94.6 Dysmenorrhea, unspecified
CPT/HCPCS: 36415; 76856; 80053; 81003; 81015; 81025; 83690; 85025; 87086; 96374; 99284; J1885

== ENCOUNTER 2024-09-10 06:07 | Day surgery (SDC) | payer OTHER, SELFPAY ==
[2024-09-09 08:46] VITALS: BMI 26.9
[2024-09-10] VITALS (13 sets, daily range): BP systolic 98–129; BP diastolic 69–85; PULSE 66–95; RESP 15–22; TEMP 36.2–37.3; O2SAT 97–100; BMI 26.9
--- NOTE | 2024-09-10 | PATH_ITS ---
[facility] Accession Number: [id number] No. of containers..01 Tissue . 01 Material submitted: . uterus - CERVIX, UTERUS, BILATERAL FALLOPIAN TUBES AND RIGHT OVARY . 01 Diagnosis: CERVIX, UTERUS, BILATERAL FALLOPIAN TUBES AND RIGHT OVARY, TOTAL LAPAROSCOPIC HYSTERECTOMY, BILATERAL SALPINGECTOMY, AND RIGHT OOPHORECTOMY (195 GRAMS COMBINED UTERINE AND RIGHT OVARY WEIGHT): Cervix with no significant histomorphologic abnormality. Endocervix with a prominent Nabothian gland cyst and no significant histomorphologic abnormality. Secretory endometrium; negative for significant atypia. Myometrium involved by adenomyosis and with a 10 mm benign leiomyoma; negative for significant atypia. Uterine serosa with no significant histomorphologic abnormality. Left fallopian tube, complete cross sections, negative for significant atypia. Right fallopian, complete cross sections; negative for significant atypia. Right ovary with scattered benign follicular cysts, extensive stromal thecosis, and a prominent, benign hemorrhagic corpus luteum cyst. MRV 09/15/2024 1742 Local . 01 Electronically signed: . Edna Mancini MD, Pathologist NPI- [id number] . 01 Gross description: . Received in formalin with two patient identifiers and uterus, cervix, bilateral fallopian tubes, right ovary, is an intact uterus (156 grams, 11.0 cm superior to inferior, 6.8 cm medial to lateral, 4.6 cm anterior to posterior) with attached cervix (3.6 x 3.2 cm), fimbriated fragment of presumed left fallopian tube (1.5 cm in length by 0.6 cm in diameter), right fallopian tube (5.2 x 0.9 cm), and right ovary (39 grams, 6.2 x 4.7 x 3.0 cm), with no additional adnexa. . The ectocervix is cesar and wrinkled with a long suture at 12 o'clock, and a circular os, 0.4 cm in diameter. The anterior margin is inked blue while the posterior margin is inked black. . The serosa is cesar to brown and smooth with no lesions identified. The endocervical canal has cesar herringbone mucosa and measures 3.5 cm in length with multiple cystic structures up to 0.9 cm in greatest dimension, filled with cloudy gelatinous material. The endometrial cavity is 2.6 cm from cornu to cornu, and 5.8 cm in length with cesar, lush endometrium that averages 0.3 cm thick with no lesions identified. The myometrium is pink-cesar, and moderately trabecular with several well-circumscribed white whorled nodules up to 0.1 cm in greatest dimension with no hemorrhage or necrosis identified. . Both tubes have violaceous, smooth serosa with a cystic structure on the left tube fragment, 0.3 cm in greatest dimension filled with cloudy serous fluid. Both tubes have unremarkable stellate lumen. . The right ovary is cesar and cerebriform with a cystic structure, 4.2 x 3.5 x 2.9 cm. The external surface of the ovary is inked blue, and sectioning reveals the cyst to contain red-brown gelatinous material, and the nava are thin and smooth averaging 0.1 cm thick. The remaining ovarian parenchyma has additional smaller hemorrhagic cysts ranging from 0.3 to 0.5 cm in greatest dimension. No additional lesions are identified. . [employer] sections are submitted as follows: A1: Anterior cervix. A2: Posterior cervix. A3: Anterior full thickness section. A4: Posterior full thickness section. A5: Nodules. A6: Left fallopian tube to include one half of bisected fimbriae and cross sections. A7: Right fallopian tube to include one-half of bisected fimbriae and cross sections. A8-A10: Ovary and cysts. ([id number]) /MRV 09/11/2024 [facility] Local . 01 Pathologist provided ICD-10: R10.2, N93.9 . 01 CPT . 494444 Specimen Comment: A courtesy copy of this report has been sent to [facility] Pathology Performed at: [address] [address], [place], [place] [id number] MD Iglesia Owens MD Phone: [phone]
[2024-09-10] MEDS: LACTATED RINGERS 1,000 ML 42 ML IV (06:56)
[2024-09-10] MEDS: SCOPOLAMINE 1 PATCH TOP (06:57)
[2024-09-10] MEDS: ACETAMINOPHEN IV 1,000 MG/100 ML VIAL 400 MG IV (06:57)
--- NOTE | 2024-09-10 07:41 | PM.PREOP ---
Pre-operative Note Interval Note History & Physical reviewed/Exam performed by Physician: Yes Changes to H&P: No H&P completed within 30 days and has changed as indicated here:: see H&P from 09/07
[2024-09-10] MEDS: CEFAZOLIN 2 GM/100 ML PREMIX 100 ML IV (07:50)
--- NOTE | 2024-09-10 08:30 | SUR.OPER ---
Lithotomy on padded OR bed. [place] Pad Positioner under torso. Head on pillow, arms padded and tucked at sides. Legs secured in padded yellow fins stirrups.
[2024-09-10] MEDS: BUPIVACAINE 0.25% (PF) VIAL 30 ML INJ (08:44)
[2024-09-10] MEDS: ROPIVACAINE 0.5% PF 5 MG/ML 20ML VIAL 20 ML INJ (09:50)
--- NOTE | 2024-09-10 10:33 | P.OP_ITS ---
Operative Date/Time/Diagnoses Date of procedure: 09/10/24 Time of procedure: 08:00 Pre-op diagnosis: 1. Abnormal uterine bleeding 2. Chronic pelvic pain 3. Recurrent ovarian cysts Post-op diagnosis: same (4. Endometriosis) Procedure & Clinicians Procedure: Total laparoscopic hysterectomy Bilateral salpingectomy Right oophorectomy Lysis of adhesions Cystoscopy Same procedure as scheduled: Yes Indications: 38yo with chronic pelvic pain and menorrhagia, desiring definitive management. Also with recurrent ovarian cysts and Mittelschmerz pain, more so on the right side, thus desired right oophorectomy. Surgeon: Tami Preciado [employer]ope Dry House Operator: Akbar Wallace Anesthesia Type: General Operative Notes Findings: Normal appearing uterus with bilateral fallopian tube remnants. Left ovary a ppeared normal. Right ovary enlarged with simple cyst. Endometriosis implants noted in the pelvic peritoneum. Normal appearing liver edge and gallbladder. Omental adhesions noted at the umbilicus and left lower quadrant to the anterior abdominal wall. Closure Type: primary Specimen(s): other (uterus, cervix, bilateral fallopian tubes, right ovary) Applied: catheter Estimated Blood Loss (mL): 100 Blood products transfused: none Procedure in detail: The risks, benefits, indications and alternatives of the procedure were reviewed with the patient and informed consent was obtained. The pt was taken to the operating room where general anesthesia was obtained without difficulty. The pt was then placed in the low lithotomy position using Cong Stirrups and arms were tucked with padding. Sequential compression devices were placed bilaterally for VTE prophylaxis. She was then prepped and draped in the sterile fashion and a Hathaway catheter was placed. She received 2g Ancef for surgical prophylaxis. A 100e.com-care uterine manipulator was placed through the cervix into the uterus for uterine manipulation. Attention was then turned to the patient?s abdomen were a 5mm skin incision was made in the inferior aspect of the umbilicus after injecting 0.25% Marcaine. A 5mm trocar and sleeve were then carefully introduced into the peritoneal cavity under direct visualization at a 90-degree angle while tenting up the abdominal wall. Intra-peritoneal placement was confirmed under direct visualization with the laparoscope with entry pressure <5 mmHg. A pneumoperitoneum was obtained with several liters of CO2 gas, maximum pressure of 15 mmHg. Upon entry into the peritoneal cavity, structures immediately below the incision were inspected and found to be free of injury. A survey of the patient's abdomen and pelvis was notable for the above findings. Three additional 5mm port sites, one in the right lateral side and two in the left lateral side, were placed under direct laparoscopic guidance. The Powerseal device was used to ligate the omental adhesions that were noted to the anterior abdominal wall. Afterward, the omentum was inspected and was hemostatic. The Powerseal device was then used to clamp, cauterize, and ligate the left fimbriated end of the fallopian tube from mesosalpinx. The utero- ovarian and round ligaments were then clamped, cut, and ligated. The anterior broad ligament was then incised along the bladder reflection and the bladder was dissected off the lower uterine segment until endopelvic fascia was visualized. The uterine artery was then identified, skeletonized, and ligated on the left. The uterosacral ligament and cardinal ligament were transected on the left. Attention was then directed to the right side, where the Powerseal device was then used to clamp, cut, and ligate the right infundibulopelvic ligament. The right fallopian tube and ovary were then from the lateral broad ligament attachments. As on the left side, the same procedure was done to clamp, cut, and ligate the right side of the uterus. The anterior colpotomy was then made using the Bovie L-hook and continued circumferentially inferior to the cervix using the colpotomy ring as a guide. The entire cervix and uterus was then successfully amputated and delivered through the vagina, along with the right ovary and tube. The left fimbriated end of the fallopian tube had been removed through a lateral port site. The 0 Stratafix suture was then introduced into the abdominal cavity via the vagina. The vaginal cuff was then closed laparoscopically with the barbed suture in a running fashion. The suture needle was removed via the lateral port under direct visualization. Bleeding was noted along the right edge of the colpotomy, and was unable to be secured with bipolar cautery, thus a 2-0 vicryl suture was then used to suture ligate this pedicle with a figure of eight. After this, all pedicles were noted to be hemostatic. The suture needle was again removed via the lateral port site under direct visualization. The hathaway catheter was then removed, and the cystoscope was then primed and advanced through the urethra and into the bladder. Both ureteral orifices were identified and bilateral efflux of urine was visualized. A survey of the bladder did not show defects or visible suture. The cystoscope was then removed and the bladder was drained, and the hathaway catheter was replaced. Attention was then returned to the abdomen, where the pelvis was then irrigated. Excellent hemostasis was noted. Monopolar cautery was used to fulgurate the endometrial implants that remained on the pelvic peritoneum. Ropivicaine was placed in the pelvis for postoperative analgesia. The pneumoperitoneum was then released, and the remaining ports were removed. The skin incisions were then reapproximated using 4-0 monocryl suture in a subcuticular fashion and covered with Dermabond. At the completion of the case the sponge and needle counts were correct x 2, and all instruments were confirmed to be removed from the vagina. The patient was taken to the PACU in stable condition. Complications: none Post-operative Condition: stable Disposition: PACU Plan for aftercare: Plan for discharge home in the morning on post-op day #1.
[2024-09-10] MEDS: HYDROMORPHONE 1 MG INJ IV (10:43)
[2024-09-10] MEDS: OXYCODONE IR 5 MG TABLET PO ×3 (10:47→20:22)
[2024-09-10] MEDS: KETOROLAC 30 MG/ML VIAL IV ×3 (11:32→23:06)
[2024-09-10] MEDS: ACETAMINOPHEN 325 MG TABLET 650 MG PO ×3 (12:11→23:05)
[2024-09-10] MEDS: ONDANSETRON 4 MG/2 ML INJ IV (14:51)
[2024-09-10] MEDS: DOCUSATE 100 MG CAPSULE 200 MG PO (21:00)
[2024-09-11] MEDS: OXYCODONE IR 5 MG TABLET PO ×3 (00:09→10:17)
[2024-09-11] MEDS: ACETAMINOPHEN 325 MG TABLET 650 MG PO (05:48)
[2024-09-11] MEDS: KETOROLAC 30 MG/ML VIAL IV (05:48)
[2024-09-11 06:15] VITALS: BP 101/64; PULSE 74; RESP 20; TEMP 37.1; O2SAT 99
[2024-09-11 07:53] VITALS: BP 102/62; PULSE 85; RESP 15; TEMP 37.3; O2SAT 98
--- NOTE | 2024-09-11 08:15 | P.DS_ITS ---
History of Present Illness History of Present Illness Date Patient Seen: 09/11/24 Time Patient Seen: 08:15 Chief complaint: OPB Discharge Providers Provider Discharge Date: 09/11/24 Primary care physician: Ellis SALGUERO Provider Discharge provider: Tami Preciado DO Summary Hospital Course Discharge Diagnosis: Chronic pelvic pain Endometriosis Abnormal uterine bleeding Hospital Course: 38-year-old female with chronic pelvic pain and menorrhagia, admitted for planned TLH/BS/right oophorectomy/cystoscopy. Her procedure was uncomplicated. By postoperative day #1, she was ambulating, tolerating regular diet, voiding spontaneously, with no vaginal bleeding. Her pain was well controlled on oral pain medication, thus she was discharged to home on postoperative day #1. Status at Discharge Cognitive/behavioral status at discharge: oriented Functional status at discharge: independent ambulation Overall status at discharge: patient is progressing back to baseline Time Spent with Patient Time spent: Less than 30 minutes Exam Vital Signs (past 8 hours): - 09/11/24 06:15 09/11/24 07:53 Temperature 98.7 F 99.1 F Pulse Rate 74 85 Respiratory Rate 20 15 Blood Pressure 101/64 102/62 Pulse Oximetry 99 98 Oxygen Flow Rate 0 Oxygen Delivery Method Room Air Oxygen Flow Rate 0 Const General: healthy appearing, comfortable and No acute distress Resp Effort & Inspection: normal respiratory effort and able to speak in complete sentences GI Palpation: soft and No tender Skin Other: Laparoscopic incisions clean/dry/intact with Dermabond Neuro Cognition: normal cognition Speech: speech normal Extrem General: normal to inspection and no calf tenderness Psych Mood: congruent mood Affect: normal affect [facility] Medical History (Updated 09/10/24 @ 18:02 by Trisha Scanlon) Wears glasses Ovarian cyst (~1994) Irregular menstrual cycle (~2023) Menorrhagia (~1994) Dysmenorrhea (~1994) PTSD (post-traumatic stress disorder) Recurrent abdominal pain Surgical History (Updated 09/07/24 @ 09:21 by Tami Preciado DO) History of dilation and curettage History of bilateral tubal ligation Previous section Social History household members: spouse and children Smoking Status: Never smoker alcohol intake: former substance use type: marijuana Discharge Assessment & Plan Assessment and Plan Assessment: Total laparoscopic hysterectomy Bilateral salpingectomy Right oophorectomy Lysis of adhesions Cystoscopy Plan of Treatment: Discharge to home Discharge Plan Discharge Plan Patient Disposition: Home Provider Discharge Comment: Take acetaminophen 1000 mg every 8 hours for pain. Use oxycodone 5-10 mg every 4 hours as needed for severe pain. Avoid lifting greater than 20 lb for at least 4 weeks. Avoid placing anything in the vagina until your 6 week postoperative visit Discharge orders & Medications Discharge Orders: Discharge (Order); Ordered 09/11/24 Ordered By: Tami Preciado Prescriptions: Continued oxycodone 5 mg tablet 5 mg PO Q4H PRN (Reason: pain) Qty: 20 0RF Rx Instructions: will take when she goes home acetaminophen 500 mg tablet 1,000 mg PO TID PRN (Reason: Pain (Scale Score 1-3)) promethazine 25 mg tablet 25 mg PO QD-QID PRN (Reason: nausea/vomiting) cholecalciferol (vitamin D3) 50 cap PO DAILY Follow up/Referrals: Tami Preciado, [Physician] - (Follow up as scheduled) Diet/Activity/Treatments Diet: Diet as Tolerated Activity: Ambulate as tolerated Skin/Wound/Dressing Care Report to your healthcare provider any signs of infection, such as:: chills, fever, increased pain, unusual drainage and unusual redness Dressing: The Dermabond will come off in about 1 week. You may shower normally in the interim. Visit Report/Discharge Packet Instructions: Oophorectomy, DI for Hysterectomy, DI for Laparoscopy, DI for Constipation, How to Prevent Falls, DI for Prescription Opioid Use Stand Alone Forms: Patient Portal/API Discharge Data Primary Care Provider: Ellis De La Torre Attending Provider: Tami Preciado
[2024-09-11] MEDS: DOCUSATE 100 MG CAPSULE 200 MG PO (08:47)
--- NOTE | 2024-09-11 10:42 | CM.DANOTE ---
DCP Assessment Note: Pt is a 38yo female, resident of [place], is s/p TLH, BS, cystoscopy. Pt lives in a house with her spouse and 3 children. Pt's Primary Care Provider is at [facility] and insurance is [employer]. Reviewed chart and team rounds for pt's medical status and initial discharge needs. DCP met w/patient at bedside; introduced self and role. Patient was found in bed, alert and oriented, cooperative with assessment. Pt confirmed living situation and good support in . Pt expressed preference in returning home, is at bedside to transport when cleared. Plan: Discharge order is in, anticipating discharge home with spouse to transport. CM team will follow closely for coordination of discharge plans. EMMA [facility] Discharge Planning/Care Management CM Discharge Assessment Start: 09/11/24 10:40 Freq: Status: Active Protocol: Document 09/11/24 10:40 MW (Rec: 09/11/24 10:42 MW [id number]) Discharge Planning Assessment Assigned Stock Shaper DANIEL Soto DPOA/Assigned Designee Name Chris Jessica, Spouse Contact Information [phone] Advance Directives? No History Provided By Patient,Family Member,Medical Record Has Patient been admitted in last 30 No days? Prior Living Arrangements House Household Members spouse,children Type of transporation used prior to Drives own vehicle admit Independent with ADL's Yes Is patient alert and oriented? Yes Caregiver for Another Yes: Children Comment Utilized FWW while admitted Barriers to Discharge No Discharge Plan Home Referrals Initiated None needed Whiteboard Updated in Patient Room with Yes name and ext. # of Stock Shaper Comment [phone] Review Status In Process Please Provide Date Initial DC 09/11/24 Assessment Was Performed Next Review Type Continued Stay Review
--- NOTE | 2024-09-11 12:04 | PC.NURSE ---
Discharge: Pt feels ready to d/c to home. Seen by MD and given d/c instructions. Tolerates diet w/out problems, po pain med effective per pt. Vds w/out diff. Up and amb in room and hallways. Discharge packet reviewed. Already has RX at home. Spouse at bedside. Pt d/c to home via auto with spouse.
== END 2024-09-11 10:30 | disposition home or self-care (01) ==
LOC: OR 06:08 → AC 06:08
PROVIDERS: Referring Provider Student in an Organized Health Care Education/Training Program; Visit Provider Student in an Organized Health Care Education/Training Program
PROC: 0UT94ZZ Resection of Uterus, Percutaneous Endoscopic Approach (ICD-10-PCS; CPT 58571; principal; 2024-09-10 07:45)
DX: N93.9 Abnormal uterine and vaginal bleeding, unspecified (principal); R10.2 Pelvic and perineal pain; N73.6 Female pelvic peritoneal adhesions (postinfective); N88.8 Other specified noninflammatory disorders of cervix uteri; N80.03 Adenomyosis of the uterus; D25.9 Leiomyoma of uterus, unspecified; N83.01 Follicular cyst of right ovary; N83.11 Corpus luteum cyst of right ovary
CPT/HCPCS: 58571; 81025; J0134; J0690; J1100; J1171; J1885; J2250; J2405; J2704; J3010